=== PATIENT | female | born 1985 | race Two or more races ===

== ENCOUNTER 2020-09-04 13:33 | Inpatient (IN) | payer OTHER ==
--- NOTE | 2020-09-04 14:58 | ER Document Report ---
ED Medical Screen (RME) - General Chief Complaint: Shortness Of Breath Stated Complaint: WEAKNESS,COUGH,DIFFICULTY BREATHING Time Seen by Provider: 09/04/20 14:48 - HPI Notes: Patient is a 35-year-old female who presents with shortness of breath and cough. She was recently discharged from [facility] 5 days ago after being admitted for 3 days for pneumonia. Patient states while there she was treated for C. difficile. She is very unhappy with her care during her admission and continues to have shortness of breath and cough. She is currently not on any antibiotics. She denies any diarrhea or fever currently. She was diagnosed a kidney infection at the beginning of the month and has not had this followed up. - Related Data Allergies/Adverse Reactions: No Known Allergies Allergy (Verified 09/04/20 14:48) Physical Exam - Vital signs Vitals: Temp Pulse Resp BP Pulse Ox 99.0 F 130 H 19 133/92 H 90 L 09/04/20 13:58 09/04/20 13:58 09/04/20 13:58 09/04/20 13:58 09/04/20 13:58 - Respiratory Respiratory status: No respiratory distress Breath sounds: Normal Course - Re-evaluation Re-evalutation: I have greeted and performed a rapid initial assessment of this patient. A comprehensive ED assessment and evaluation of the patient, analysis of test results and completion of medical decision making process will be conducted by an additional ED providers. - Vital Signs Vital signs: Temp Pulse Resp BP Pulse Ox 99.0 F 130 H 19 133/92 H 90 L 09/04/20 13:58 09/04/20 13:58 09/04/20 13:58 09/04/20 13:58 09/04/20 13:58
--- NOTE | 2020-09-04 15:27 | RADIOLOGY REPORT (SQ) ---
EXAM DESCRIPTION: CHEST SINGLE VIEW IMAGES COMPLETED DATE/TIME: 09/04/2020 3:17 pm REASON FOR STUDY: shortness of breath COMPARISON: None. EXAM PARAMETERS: NUMBER OF VIEWS: One view. TECHNIQUE: Single frontal radiographic view of the chest acquired. RADIATION DOSE: NA LIMITATIONS: None. FINDINGS: LUNGS AND PLEURA: Extensive diffuse bowel airspace disease consistent with pneumonia. No pneumothorax. MEDIASTINUM AND HILAR STRUCTURES: No obvious mass. HEART AND VASCULAR STRUCTURES: Heart normal in size. Normal vasculature. BONES: No acute findings. HARDWARE: None in the chest. OTHER: No other significant finding. IMPRESSION: Diffuse bilateral airspace disease. COMMENT: Commonly reported imaging features of COVID-19 pneumonia are present. Other processes young ch as influenza pneumonia and organizing pneumonia, as can be seen with drug toxicity and connective tissue disease, can cause a similar imaging pattern. [facility] TECHNICAL DOCUMENT[facility]: JOB ID: [id number] All Rights Reserved Reading location - IP/workstation name: [email or web address]
[2020-09-04 15:48] LABS: APPEARANCE,URINE CLEAR; BILIRUBIN,URINE NEGATIVE (NEGATIVE); COLOR,URINE STRAW; GLUCOSE, URINE NEGATIVE (NEGATIVE); KETONES,URINE NEGATIVE (NEGATIVE); LEUKOCYTE ESTERASE,URINE NEGATIVE (NEGATIVE); NITRITE,URINE NEGATIVE (NEGATIVE); PROTEIN,URINE NEGATIVE (NEGATIVE); URINE SPECIFIC GRAVITY 1.006; UROBILINOGEN,URINE NEGATIVE mg/dL (<2.0)
[2020-09-04 15:52] LABS: HEMATOCRIT 37.1 % (36.0-47.0); HEMOGLOBIN 12.5 g/dL (12.0-15.5); MEAN CORPUSCULAR HEMOGLOBIN 30.3 pg (27.0-33.4); MEAN CORPUSCULAR HGB CONC 33.8 g/dL (32.0-36.0); MEAN CORPUSCULAR VOLUME 90 fl (80-97); PLATELET COUNT 970 10^3/uL (150-450); RED BLOOD COUNT 4.14 10^6/uL (3.72-5.28); RED CELL DISTRIBUTION WIDTH 14.1 % (11.5-14.0); WHITE BLOOD COUNT 20.9 10^3/uL (4.0-10.5)
[2020-09-04 15:58] LABS: A TYPE INFLUENZA AG NEGATIVE (NEGATIVE); B INFLUENZA AG NEGATIVE (NEGATIVE)
[2020-09-04 16:01] LABS: ALBUMIN 3.3 g/dL (3.5-5.0); ALKALINE PHOSPHATASE 86 U/L (38-126); ANION GAP 12 (5-19); ASPARTATE AMINO TRANSFERASE 36 U/L (14-36); BILIRUBIN,DIRECT 0.1 mg/dL (0.0-0.4); BILIRUBIN,TOTAL 0.4 mg/dL (0.2-1.3); BLOOD UREA NITROGEN 3 mg/dL (7-20); CALCIUM 8.6 mg/dL (8.4-10.2); CARBON DIOXIDE 26 mmol/L (22-30); CHLORIDE 102 mmol/L (98-107); GLUCOSE 102 mg/dL (75-110); POTASSIUM 4.1 mmol/L (3.6-5.0); TOTAL PROTEIN 6.4 g/dL (6.3-8.2)
[2020-09-04 16:24] LABS: ABSOLUTE LYMPHOCYTES# (MANUAL) 2.3 10^3/uL (0.5-4.7); BASOPHILS % (MANUAL) 0 % (0-2); EOSINOPHILS % (MANUAL) 23 % (0-6); LYMPHOCYTES % (MANUAL) 11 % (13-45); MONOCYTES % (MANUAL) 5 % (3-13); SEGMENTED NEUTROPHILS % (MAN) 61 % (42-78); TOTAL CELLS COUNTED 100
[2020-09-04 16:25] LABS: PLATELET COMMENT INCREASED
[2020-09-04 16:27] LABS: ANISOCYTOSIS SLIGHT; OVALOCYTES SLIGHT; POIKILOCYTOSIS SLIGHT; POLYCHROMASIA SLIGHT
--- NOTE | 2020-09-04 18:20 | ER Document Report ---
ED General - General Chief Complaint: Shortness Of Breath Stated Complaint: WEAKNESS,COUGH,DIFFICULTY BREATHING Time Seen by Provider: 09/04/20 14:48 - HPI Notes: 35-year-old female presents with shortness of breath. Patient has had recent hospitalizations this month at the [facility]. Patient states that her first admission was for a kidney infection, she was treated with antibiotics but this gave her C. difficile. She was started on oral vancomycin, however has since discontinued use since she has been home. She states that she took 2 pills for 2 to 3 days as an outpatient, stop because it was causing some stomach discomfort. Was hospitalized again last week for shortness of breath and and "full blown pneumonia", she states that she received IV antibiotics but is unsure which ones, she states that she was tested negative for Covid. She was discharged Friday, 5 days ago. She reports that she continues to have shortness of breath and a wet cough, she states that she cannot breathe, she cannot sleep, she feels sweaty and has had decreased oral intake. She denies any abdominal pain or diarrhea. She denies any previous past medical history. She denies intravenous drug abuse. She states that she does smoke. - Related Data Allergies/Adverse Reactions: No Known Allergies Allergy (Verified 09/04/20 14:48) Past Medical History - General Information source: Patient - Social History Smoking Status: Current Every Day Smoker Family History: Reviewed & Not Pertinent Patient has homicidal ideation: No Review of Systems - Review of Systems Constitutional: Chills EENT: No symptoms reported Cardiovascular: denies: Chest pain Respiratory: Cough, Short of breath Gastrointestinal: Poor fluid intake Genitourinary: No symptoms reported Female Genitourinary: No symptoms reported Musculoskeletal: Muscle pain Skin: No symptoms reported Hematologic/Lymphatic: No symptoms reported Neurological/Psychological: No symptoms reported Physical Exam - Vital signs Vitals: Temp Pulse Resp BP Pulse Ox 99.0 F 130 H 19 133/92 H 90 L 09/04/20 13:58 09/04/20 13:58 09/04/20 13:58 09/04/20 13:58 09/04/20 13:58 - General General appearance: Alert - HEENT Head: Normocephalic, Atraumatic Extraocular movements intact: Yes Pupils: PERRL - Respiratory Breath sounds: Rhonchi - Generalized, course - Cardiovascular Rhythm: Tachycardia Heart sounds: Normal auscultation Normal capillary refill: Yes - Abdominal Tenderness: Nontender - Extremities General upper extremity: Normal ROM General lower extremity: Normal ROM - Neurological Neuro grossly intact: Yes Cognition: Normal Orientation: AAOx4 - Psychological Associated symptoms: Normal affect - Skin Skin Temperature: Warm Course - Re-evaluation Re-evalutation: 35-year-old female presents with persistent shortness of breath and cough, was recently admitted at the [facility] for pneumonia and was reported to be Covid negative. She is also recently had pyelonephritis and C. difficile. She initial had hypoxia on room air, which improved with nasal cannula. She has coarse sounds throughout all of her lung carson. She is mildly tachycardic, afebrile, overall she is nontoxic appearing but does appear to not be feeling well. A chest x-ray has already been performed which shows bilateral opacities involving all lung carson. This is highly concerning for Covid, will retest. We will also obtain CTA chest to evaluate for PE and to get a better look at the lung carson to see if there is any evidence of abscess or septic emboli, though she does deny IVDA. Will start with neb, Decadron and fluids. Continue on nasal cannula. 09/04/20 20:03 Ferritin, CRP and D-dimer are all elevated. ABG does note some hypoxia with pO2 60, will continue on nasal cannula 09/04/20 21:22 CTA is negative for PE however does have extensive bilateral airspace disease. Updated patient on CT results. She remains 97% on 3 L. She does report some improvement after receiving albuterol treatment. 09/04/20 22:[address] Snow for admission - Vital Signs Vital signs: Temp Pulse Resp BP Pulse Ox 99.4 F 108 H 21 H 126/91 H 97 09/05/20 00:28 09/05/20 00:28 09/05/20 00:28 09/05/20 00:28 09/05/20 00:28 - Laboratory Result Diagrams: 09/04/20 15:25 09/04/20 15:25 Laboratory results interpreted by me: 09/04/20 09/04/20 09/04/20 15:25 15:25 15:25 WBC 20.9 H RDW 14.1 H Plt Count 970 H Lymphocytes % (Manual) 11 L Eosinophils % (Manual) 23 H Abs Neuts (Manual) 12.7 H Absolute Eos (Manual) 4.8 H D-Dimer 9.91 H ABG pO2 ABG O2 Saturation BUN 3 L Creatinine 0.40 L Ferritin C-Reactive Protein Albumin 3.3 L 09/04/20 09/04/20 15:25 19:05 WBC RDW Plt Count Lymphocytes % (Manual) Eosinophils % (Manual) Abs Neuts (Manual) Absolute Eos (Manual) D-Dimer ABG pO2 59.7 L ABG O2 Saturation 92.1 L BUN Creatinine Ferritin 161.00 H C-Reactive Protein 54.0 H Albumin - Diagnostic Test Radiology reviewed: Image reviewed, Reports reviewed - EKG Interpretation by Me Additional EKG results interpreted by me: EKG is interpreted by me. Sinus tachycardia, rate 106. Narrow QRS, QTC within normal limits. No ST segment elevation or depression. Discharge - Discharge Clinical Impression: Hypoxia, Suspected COVID-19 virus infection Bilateral pneumonia Qualifiers: Pneumonia type: due to unspecified organism Lung location: unspecified part of lung Qualified Code(s): J18.9 - Pneumonia, unspecified organism Disposition: ADMITTED OBSERVATION Admitting Provider: Gwendolyn (Hospitalist) Unit Admitted: Medical Floor
[2020-09-04] MEDS ORDERED: IPRATROPIUM/ALBUTEROL 0.5-2.5 MG/3 ML AMPUL NEB ONE (18:36)
[2020-09-04] MEDS ORDERED: GUAIFENESIN 600 MG TABLET.SA PO ONE (18:37)
[2020-09-04] MEDS ORDERED: RINGERS SOLUTION,LACTATED 1,000 ML IV ONE (18:59)
[2020-09-04] MEDS: CEFEPIME 1 GM/D5W RTU 1 GM/50 ML RTUPB IV SCH ×2 (19:19→22:21)
[2020-09-04 19:26] LABS: ARTERIAL BLOOD BASE EXCESS 0.1 mmol/L; ARTERIAL BLOOD H2CO3 1.07 mmol/L (1.05-1.35); ARTERIAL BLOOD HCO3 23.8 mmol/L (20-24); ARTERIAL BLOOD O2 SATURATION 92.1 % (94-98); ARTERIAL BLOOD PCO2 35.5 mmHg (35-45); ARTERIAL BLOOD PH 7.45 (7.35-7.45); ARTERIAL BLOOD PO2 59.7 mmHg (80-100); ARTERIAL BLOOD TOTAL CO2 24.9 mmol/L (21-25)
[2020-09-04 19:27] LABS: ARTERIAL BLOOD FIO2 28%
--- NOTE | 2020-09-04 20:41 | RADIOLOGY REPORT (SQ) ---
EXAM DESCRIPTION: CT CHEST ANGIOGRAPHY WITHOUT THEN WITH IV CONTRAST with three-dimensional reconstructions COMPLETED DATE/TME: 09/04/2020 20:17 CLINICAL HISTORY: 35 years, Female, b/l pna, hypoxia, eval PE This exam was performed according to our departmental dose-optimization program which includes automated exposure control, adjustment of the mA and/or kVp according to patient size and/or use of iterative reconstruction technique where applicable. FINDINGS: Aorta is within normal limits with no aneurysm or dissection. Pulmonary arteries are well opacified with no significant filling defects to suggest acute pulmonary embolism. No significant mediastinal, hilar or axillary lymphadenopathy. No significant pericardial effusion. Mild right pleural effusion. Trace left pleural effusion. Visualized upper abdominal organs are within normal limits. Evaluation of the lung parenchyma demonstrates trachea and major airways to be patent. Diffuse groundglass changes throughout the lungs and more consolidative changes in the upper lobes. No pneumothorax. IMPRESSION: No acute pulmonary embolism. Extensive bilateral diffuse pneumonia, suspicious for Covid etiology, correlate clinically. Mild right pleural effusion.
[2020-09-04] MEDS ORDERED: DEXAMETHASONE SOD PHOS INJ 10 MG/1 ML VIAL IV ONE (21:21)
[2020-09-04] MEDS ORDERED: GUAIFENESIN SYRP 200 MG/10 ML UDC PO PRN (22:34)
[2020-09-04] MEDS ORDERED: ALBUTEROL SULFATE HFA (90 MCG/PUFF) 8 GM MDI IH PRN (22:34)
--- NOTE | 2020-09-04 23:03 | PDOC H&P ---
History of Present Illness Admission Date/PCP: GUSTAVO ATWOOD DO Patient complains of: Shortness of breath History of Present Illness: BRITTANY STEELE is a 35 year old female with no significant chronic medical issues, who presents to the hospital for evaluation of progressively worsening shortness of breath and cough. Patient was recently seen at [facility] where she was treated for pyelonephritis at the beginning of the month. She subsequently was hospitalized from Friday to Friday last week for treatment of pneumonia and C. difficile infection. She was discharged on vancomycin and azithromycin. She also was discharged on Tamiflu. She states she completed the Tamiflu and azithromycin but stopped taking the vancomycin because it made her feel sicker. She continues to have progressive worsening shortness of breath and dry hacking cough. She states she was tested for COVID-19 during her last hospitalization which was negative. She was also tested at the beginning of the month for COVID-19 which was also negative. She is not certain that her flu test was positive though she was sent home on Tamiflu. She denies any sick contacts. Denies any rashes. She states her diarrhea has resolved as well. Seen in the ER today and noted to be hypoxic and was placed on 2 L nasal cannula. Initial documentation shows she was 90% on room air. Past Medical History GI Medical History: Reports: Other - C. difficile Past Surgical History Past Surgical History: Reports: None Social History Information Source: Patient Smoking Status: Current Every Day Smoker Electronic Cigarette use?: Yes Frequency of Alcohol Use: Occasional Hx Recreational Drug Use: No - Advance Directive Resuscitation Status: Full Code Family History Family History: denies: CAD Parental Family History Reviewed: Yes Children Family History Reviewed: Yes Sibling(s) Family History Reviewed.: Yes Medication/Allergy Allergies/Adverse Reactions: No Known Allergies Allergy (Verified 09/04/20 14:48) Review of Systems Constitutional: PRESENT: chills, night sweats. ABSENT: fatigue, fever(s) Eyes: ABSENT: visual disturbances Ears: ABSENT: hearing changes Nose, Mouth, and Throat: ABSENT: headache(s) Cardiovascular: PRESENT: chest pain - Only from coughing. ABSENT: orthropnea Respiratory: PRESENT: cough, dyspnea Gastrointestinal: ABSENT: abdominal pain, diarrhea, nausea, vomiting Genitourinary: ABSENT: dysuria Musculoskeletal: ABSENT: back pain Integumentary: PRESENT: diaphoresis. ABSENT: lesions, pruritus, rash Neurological: ABSENT: dizziness Endocrine: ABSENT: polyuria Hematologic/Lymphatic: ABSENT: easy bleeding Allergic/Immunologic: ABSENT: seasonal rhinorrhea Physical Exam Vital Signs: Temp Pulse Resp BP Pulse Ox 99.4 F 101 H 19 129/81 H 98 09/04/20 21:08 09/04/20 21:08 09/04/20 13:58 09/04/20 21:08 09/04/20 21:08 Intake & Output 09/03/20 09/04/20 09/05/20 06:59 06:59 06:59 Intake Total 1050 Balance 1050 Weight 72.3 kg General appearance: PRESENT: no acute distress, cooperative Head exam: PRESENT: normocephalic Eye exam: PRESENT: EOMI Neck exam: ABSENT: JVD Respiratory exam: PRESENT: crackles, symmetrical, unlabored. ABSENT: accessory muscle use, retraction, rhonchi, stridor, tachypnea, wheezes Cardiovascular exam: PRESENT: RRR, +S1, +S2. ABSENT: systolic murmur, tachycardia GI/Abdominal exam: PRESENT: soft. ABSENT: rebound, rigid, tenderness Extremities exam: ABSENT: pedal edema Neurological exam: PRESENT: alert, awake, oriented to person, oriented to place, oriented to time Psychiatric exam: ABSENT: agitated, anxious Focused psych exam: ABSENT: pressured speech Skin exam: ABSENT: jaundice Results Laboratory Results: 09/04/20 15:25 09/04/20 15:25 09/04/20 09/04/20 09/04/20 15:25 15:25 15:25 WBC 20.9 H RBC 4.14 Hgb 12.5 Hct 37.1 MCV 90 MCH 30.3 MCHC 33.8 RDW 14.1 H Plt Count 970 H Seg Neutrophils % Not Reportable Carbonic Acid HCO3/H2CO3 Ratio ABG pH ABG pCO2 ABG pO2 ABG HCO3 ABG O2 Saturation ABG Base Excess FiO2 Sodium 140.3 Potassium 4.1 Chloride 102 Carbon Dioxide 26 Anion Gap 12 BUN 3 L Creatinine 0.40 L Est GFR ( Amer) > 60 Glucose 102 Calcium 8.6 Ferritin Total Bilirubin 0.4 AST 36 Alkaline Phosphatase 86 C-Reactive Protein Total Protein 6.4 Albumin 3.3 L Urine Color STRAW Urine Appearance CLEAR Urine pH 8.0 Ur Specific [place] 1.006 Urine Protein NEGATIVE Urine Glucose (UA) NEGATIVE Urine Ketones NEGATIVE Urine Blood NEGATIVE Urine Nitrite NEGATIVE Ur Leukocyte Esterase NEGATIVE Urine WBC (Auto) 0 Urine RBC (Auto) 0 09/04/20 09/04/20 15:25 19:05 WBC RBC Hgb Hct MCV MCH MCHC RDW Plt Count Seg Neutrophils % Carbonic Acid 1.07 HCO3/H2CO3 Ratio 22:1 ABG pH 7.45 ABG pCO2 35.5 ABG pO2 59.7 L ABG HCO3 23.8 ABG O2 Saturation 92.1 L ABG Base Excess 0.1 FiO2 28% Sodium Potassium Chloride Carbon Dioxide Anion Gap BUN Creatinine Est GFR ( Amer) Glucose Calcium Ferritin 161.00 H Total Bilirubin AST Alkaline Phosphatase C-Reactive Protein 54.0 H Total Protein Albumin Urine Color Urine Appearance Urine pH Ur Specific [place] Urine Protein Urine Glucose (UA) Urine Ketones Urine Blood Urine Nitrite Ur Leukocyte Esterase Urine WBC (Auto) Urine RBC (Auto) Impressions: Chest X-Ray 09/04/20 14:55 IMPRESSION: Diffuse bilateral airspace disease. Chest/Abdomen CTA 09/04/20 18:35 IMPRESSION: No acute pulmonary embolism. Extensive bilateral diffuse pneumonia, suspicious for Covid etiology, correlate clinically. Mild right pleural effusion. Assessment and Plan - Diagnosis (1) Acute hypoxemic respiratory failure Is this a current diagnosis for this admission?: Yes Plan: Secondary to interstitial pneumonia/pneumonitis PO2 is 59 on 2 L nasal cannula. We will keep patient on 2 L nasal cannula. Goal SPO2 above 91%. (2) Interstitial pneumonia Is this a current diagnosis for this admission?: Yes Plan: CTA chest shows no PE but does show extensive bilateral interstitial infiltrates. Leukocytosis over 20,000, SIRS and inflammatory markers are quite high. Not septic. Patient reports having 2 negative Covid tests this month. Flu test is also negative. Suspicion is for interstitial pneumonia or pneumonitis. Completed course of azithromycin which should help with atypical infections such as Legionella. Denies any rheumatologic diseases or symptoms. If COVID-19 test comes back negative, the next suspicion would be for EVALI. Start on Levaquin Dexamethasone IV 4 mg twice daily Vitamin and zinc supplements. 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 CTA appearance also fits this etiology. It is possible that this is the culprit here especially she has not responded to antibiotics, Tamiflu Starting dexamethasone. Can switch to Solu-Medrol if Covid test comes back negative. Consider pulmonary consult if available. (4) History of Clostridioides difficile infection Is this a current diagnosis for this admission?: Yes Plan: Diagnosed last week. She states she only took her vancomycin 3 times after being discharged and stopped. Her diarrhea has stopped. It is unclear how many days she has had but I will resume vancomycin and retest for C. difficile if possible. - Time Time Spent with patient: 35 or more minutes Anticipated Discharge Disposition: Home, Self Care Anticipated Discharge Timeframe: within 48 hours - Inpatient Certification Medical Necessity: Failure to Improve With Outpatient Therapy, Need For IV Fluids
[2020-09-04] MEDS: FAMOTIDINE 20 MG TABLET PO SCH (23:28)
[2020-09-04] MEDS: GUAIFENESIN 600 MG TABLET.SA PO SCH (23:29)
[2020-09-04] MEDS: LEVOFLOXACIN 750 MG/D5W RTU 750 MG/150 ML RTUPB IV SCH (23:30)
[2020-09-05] MEDS: VANCOMYCIN HCL INJ 500 MG VIAL PO SCH ×4 (00:52→17:26)
[2020-09-05] MEDS: ACETAMINOPHEN 325 MG TABLET PO PRN ×2 (01:07→21:12)
[2020-09-05] MEDS: NORMAL SALINE 1000 ML 1,000 ML IV PRN (01:12)
[2020-09-05] MEDS: ONDANSETRON HCL INJ/PF 4 MG/2 ML SDV IV PRN ×2 (01:54→20:32)
[2020-09-05 06:39] LABS: HEMATOCRIT 31.5 % (36.0-47.0); HEMOGLOBIN 10.5 g/dL (12.0-15.5); MEAN CORPUSCULAR HEMOGLOBIN 29.7 pg (27.0-33.4); MEAN CORPUSCULAR HGB CONC 33.3 g/dL (32.0-36.0); MEAN CORPUSCULAR VOLUME 89 fl (80-97); PLATELET COUNT 844 10^3/uL (150-450); RED BLOOD COUNT 3.53 10^6/uL (3.72-5.28); RED CELL DISTRIBUTION WIDTH 13.9 % (11.5-14.0); WHITE BLOOD COUNT 14.5 10^3/uL (4.0-10.5)
[2020-09-05 06:51] LABS: ANION GAP 5 (5-19); BLOOD UREA NITROGEN 2 mg/dL (7-20); CALCIUM 8.2 mg/dL (8.4-10.2); CARBON DIOXIDE 27 mmol/L (22-30); CHLORIDE 105 mmol/L (98-107); GLUCOSE 154 mg/dL (75-110); POTASSIUM 4.7 mmol/L (3.6-5.0)
[2020-09-05 07:22] LABS: ABSOLUTE LYMPHOCYTES# (MANUAL) 1.2 10^3/uL (0.5-4.7); ABSOLUTE MONOCYTES # (MANUAL) 0.4 10^3/uL (0.1-1.4); BAND NEUTROPHILS % (MANUAL) 2 % (3-5); BASOPHILS % (MANUAL) 0 % (0-2); EOSINOPHILS % (MANUAL) 2 % (0-6); LYMPHOCYTES % (MANUAL) 8 % (13-45); MONOCYTES % (MANUAL) 3 % (3-13); SEGMENTED NEUTROPHILS % (MAN) 85 % (42-78); TOTAL CELLS COUNTED 100
[2020-09-05 07:24] LABS: PLATELET COMMENT ADEQUATE; RBC MORPHOLOGY COMMENT NORMO-CYTIC/CHROMIC
--- NOTE | 2020-09-05 07:35 | EKG REPORT ---
SEVERITY:- OTHERWISE NORMAL ECG - SINUS TACHYCARDIA : Confirmed by: Brandon Burr MD 05-Sep-2020 07:34:19
[2020-09-05] MEDS: DEXAMETHASONE SOD PHOS INJ 10 MG/1 ML VIAL IV SCH ×2 (10:59→17:27)
[2020-09-05] MEDS: ENOXAPARIN SODIUM INJ 40 MG/0.4 ML DISP.SYRIN SUBCUT SCH (10:59)
[2020-09-05] MEDS: ZINC SULFATE 220 MG CAPSULE PO SCH (11:00)
[2020-09-05] MEDS: ASCORBIC ACID 500 MG TABLET PO SCH ×2 (11:00→17:27)
[2020-09-05] MEDS: CHOLECALCIFEROL (D3) 1,000 UNIT (25 MCG) TABLET PO SCH (11:00)
[2020-09-05] MEDS: GUAIFENESIN 600 MG TABLET.SA PO SCH ×2 (11:00→21:12)
[2020-09-05] MEDS: FAMOTIDINE 20 MG TABLET PO SCH ×2 (11:00→21:12)
--- NOTE | 2020-09-05 12:48 | EKG REPORT ---
SEVERITY:- BORDERLINE ECG - SINUS TACHYCARDIA PROBABLE LEFT ATRIAL ABNORMALITY : Confirmed by: Brandon Burr MD 05-Sep-2020 12:48:00
--- NOTE | 2020-09-05 16:42 | PDOC PROGRESS REPORT ---
Subjective Date:: 09/05/20 Subjective:: BRITTANY STEELE is a 35 year old female with no significant chronic medical issues, who presents to the hospital for evaluation of progressively worsening shortness of breath and cough. Patient was recently seen at [facility] where she was treated for pyelonephritis at the beginning of the month. She subsequently was hospitalized from Friday to Friday last week for treatment of pneumonia and C. difficile infection. She was discharged on vancomycin and azithromycin. She also was discharged on Tamiflu. She states she completed the Tamiflu and azithromycin but stopped taking the vancomycin because it made her feel sicker. She continues to have progressive worsening shortness of breath and dry hacking cough. She states she was tested for COVID-19 during her last hospitalization which was negative. She was also tested at the beginning of the month for COVID-19 which was also negative. She is not certain that her flu test was positive though she was sent home on Tamiflu. She denies any sick contacts. Denies any rashes. She states her diarrhea has resolved as well. Seen in the ER today and noted to be hypoxic and was placed on 2 L nasal cannula. Initial documentation shows she was 90% on room air. 09/05/2020. No acute events overnight. Shortness of breath improving, denies any fever, chills, nausea, vomiting. Denies any chest pain. SPO2 WNL on 2 L nasal cannula. Reason For Visit: PNEUOMONIA V. PNEUMONITIS Physical Exam Vital Signs: Temp Pulse Resp BP Pulse Ox 98.4 F 103 H 20 116/65 100 09/05/20 15:59 09/05/20 15:59 09/05/20 15:59 09/05/20 15:59 09/05/20 15:59 Pulse Oximeter Continuous Start: 09/04/20 22:34 Freq: RTQ4 Status: Hold Protocol: Document 09/05/20 11:31 HIRAL (Rec: 09/05/20 11:31 HIRAL [email or web address]) Pulse Oximetry Assessment Equipment Usage Equipment Standby Continuous SpO2 Machine # 0 Additional RT Notes Other on nurse monitor Intake & Output 09/04/20 09/05/20 09/06/20 06:59 06:59 06:59 Intake Total 1250 Balance 1250 Weight 72.3 kg 44.7 kg General appearance: PRESENT: no acute distress, mild distress, well-developed, well-nourished Head exam: PRESENT: atraumatic, normocephalic Neck exam: ABSENT: carotid bruit, JVD, lymphadenopathy, thyromegaly Respiratory exam: PRESENT: clear to auscultation alcides, symmetrical, tachypnea. ABSENT: rales, rhonchi, wheezes Cardiovascular exam: PRESENT: RRR. ABSENT: diastolic murmur, rubs, systolic murmur GI/Abdominal exam: PRESENT: normal bowel sounds, soft. ABSENT: distended, guarding, mass, organolmegaly, rebound, tenderness Extremities exam: PRESENT: full ROM. ABSENT: calf tenderness, clubbing, pedal edema Neurological exam: PRESENT: alert, awake, oriented to person, oriented to place, oriented to time, oriented to situation, CN II-XII grossly intact. ABSENT: motor sensory deficit Results Laboratory Results: 09/05/20 06:00 09/05/20 06:00 09/04/20 09/04/20 09/05/20 15:25 19:05 06:00 WBC 14.5 H RBC 3.53 L Hgb 10.5 L Hct 31.5 L MCV 89 MCH 29.7 MCHC 33.3 RDW 13.9 Plt Count 844 H Seg Neutrophils % Not Reportable Carbonic Acid 1.07 HCO3/H2CO3 Ratio 22:1 ABG pH 7.45 ABG pCO2 35.5 ABG pO2 59.7 L ABG HCO3 23.8 ABG O2 Saturation 92.1 L ABG Base Excess 0.1 FiO2 28% Sodium Potassium Chloride Carbon Dioxide Anion Gap BUN Creatinine Est GFR ( Amer) Glucose Calcium Ferritin 161.00 H C-Reactive Protein 54.0 H 09/05/20 06:00 WBC RBC Hgb Hct MCV MCH MCHC RDW Plt Count Seg Neutrophils % Carbonic Acid HCO3/H2CO3 Ratio ABG pH ABG pCO2 ABG pO2 ABG HCO3 ABG O2 Saturation ABG Base Excess FiO2 Sodium 136.5 L Potassium 4.7 Chloride 105 Carbon Dioxide 27 Anion Gap 5 BUN 2 L Creatinine 0.35 L Est GFR ( Amer) > 60 Glucose 154 H Calcium 8.2 L Ferritin C-Reactive Protein 09/04/20 15:25 NT-Pro-B Natriuret Pep 88 Impressions: Chest X-Ray 09/04/20 14:55 IMPRESSION: Diffuse bilateral airspace disease. Chest/Abdomen CTA 09/04/20 18:35 IMPRESSION: No acute pulmonary embolism. Extensive bilateral diffuse pneumonia, suspicious for Covid etiology, correlate clinically. Mild right pleural effusion. Assessment and Plan - Diagnosis (1) Acute hypoxemic respiratory failure Is this a current diagnosis for this admission?: Yes Plan: Secondary to interstitial pneumonia/pneumonitis PO2 is 59 on 2 L nasal cannula. We will keep patient on 2 L nasal cannula. Goal SPO2 above 91%. 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 CTA appearance also fits this etiology. It is possible that this is the culprit here especially she has not responded to antibiotics, Tamiflu Starting dexamethasone. Can switch to Solu-Medrol if Covid test comes back negative. Consider pulmonary consult if available. (3) History of Clostridioides difficile infection Is this a current diagnosis for this admission?: Yes Plan: Diagnosed last week. She states she only took her vancomycin 3 times after being discharged and stopped. Her diarrhea has stopped. It is unclear how many days she has had but I will resume vancomycin and retest for C. difficile if possible. (4) Hypoxia Is this a current diagnosis for this admission?: Yes Plan: Secondary to interstitial pneumonia/pneumonitis We will keep patient on 2 L nasal cannula. Goal SPO2 above 91%. (5) Interstitial pneumonia Is this a current diagnosis for this admission?: Yes Plan: CTA chest shows no PE but does show extensive bilateral interstitial infiltrates. Leukocytosis over 20,000, SIRS and inflammatory markers are quite high. Not septic. Patient reports having 2 negative Covid tests this month. Flu test is also negative. Suspicion is for interstitial pneumonia or pneumonitis. Completed course of azithromycin which should help with atypical infections such as Legionella. Denies any rheumatologic diseases or symptoms. If COVID-19 test comes back negative, the next suspicion would be for EVALI. Start on Levaquin Dexamethasone IV 4 mg twice daily Vitamin and zinc supplements. (6) Suspected COVID-19 virus infection Is this a current diagnosis for this admission?: Yes Plan: Denies any exposure to anybody with COVID-19 infection. Pending COVID-19 serology. - Time Time Spent with patient: 35 or more minutes Anticipated Discharge Disposition: Home, Self Care Anticipated Discharge Timeframe: within 72 hours
[2020-09-05 17:07] LABS: C DIFFICILE GDH NEGATIVE (NEGATIVE)
[2020-09-05] MEDS ORDERED: NITROGLYCERIN 0.4 MG/TAB 25 TAB/BOTTLE SL PRN (17:45)
[2020-09-05] MEDS: MORPHINE SULFATE 10 MG/ML INJ IV PRN (19:45)
[2020-09-05] MEDS: LEVOFLOXACIN 750 MG/D5W RTU 750 MG/150 ML RTUPB IV SCH (21:13)
[2020-09-06] MEDS: VANCOMYCIN HCL INJ 500 MG VIAL PO SCH ×2 (00:16→05:14)
[2020-09-06] MEDS: NORMAL SALINE 1000 ML 1,000 ML IV PRN (01:32)
[2020-09-06] MEDS: ONDANSETRON HCL INJ/PF 4 MG/2 ML SDV IV PRN (02:48)
[2020-09-06] MEDS: MORPHINE SULFATE 10 MG/ML INJ IV PRN ×3 (02:48→21:21)
[2020-09-06 05:30] LABS: INTERNATIONAL RATION (INR) 1.23; PROTHROMBIN TIME 15.7 SEC (11.4-15.4)
[2020-09-06 05:48] LABS: ALBUMIN 2.6 g/dL (3.5-5.0); ALKALINE PHOSPHATASE 60 U/L (38-126); ANION GAP 6 (5-19); ASPARTATE AMINO TRANSFERASE 23 U/L (14-36); BILIRUBIN,DIRECT 0.2 mg/dL (0.0-0.4); BILIRUBIN,TOTAL 0.4 mg/dL (0.2-1.3); BLOOD UREA NITROGEN 2 mg/dL (7-20); CALCIUM 8.1 mg/dL (8.4-10.2); CARBON DIOXIDE 27 mmol/L (22-30); CHLORIDE 103 mmol/L (98-107); GLUCOSE 96 mg/dL (75-110); POTASSIUM 4.4 mmol/L (3.6-5.0); TOTAL PROTEIN 5.1 g/dL (6.3-8.2)
[2020-09-06] MEDS: ENOXAPARIN SODIUM INJ 40 MG/0.4 ML DISP.SYRIN SUBCUT SCH (09:21)
[2020-09-06] MEDS: CHOLECALCIFEROL (D3) 1,000 UNIT (25 MCG) TABLET PO SCH (09:22)
[2020-09-06] MEDS: GUAIFENESIN 600 MG TABLET.SA PO SCH (09:22)
[2020-09-06] MEDS: ASCORBIC ACID 500 MG TABLET PO SCH (09:22)
[2020-09-06] MEDS: FAMOTIDINE 20 MG TABLET PO SCH ×2 (09:22→21:20)
[2020-09-06] MEDS: ZINC SULFATE 220 MG CAPSULE PO SCH (09:22)
[2020-09-06] MEDS ORDERED: DEXAMETHASONE 4 MG TABLET PO SCH (10:00)
[2020-09-06 10:02] LABS: HEMATOCRIT 30.7 % (36.0-47.0); HEMOGLOBIN 10.1 g/dL (12.0-15.5); MEAN CORPUSCULAR HEMOGLOBIN 29.5 pg (27.0-33.4); MEAN CORPUSCULAR VOLUME 89 fl (80-97); PLATELET COUNT 755 10^3/uL (150-450); RED BLOOD COUNT 3.44 10^6/uL (3.72-5.28); WHITE BLOOD COUNT 20.9 10^3/uL (4.0-10.5)
[2020-09-06 10:39] LABS: ABSOLUTE MONOCYTES # (MANUAL) 0.8 10^3/uL (0.1-1.4); LYMPHOCYTES % (MANUAL) 16 % (13-45); MONOCYTES % (MANUAL) 4 % (3-13); SEGMENTED NEUTROPHILS % (MAN) 61 % (42-78); TOTAL CELLS COUNTED 100
[2020-09-06 10:40] LABS: ABSOLUTE LYMPHOCYTES# (MANUAL) 3.3 10^3/uL (0.5-4.7); BASOPHILS % (MANUAL) 0 % (0-2); EOSINOPHILS % (MANUAL) 19 % (0-6)
[2020-09-06 10:46] LABS: ANISOCYTOSIS 1+; HYPOCHROMASIA 1+; PLATELET COMMENT INCREASED
[2020-09-06] MEDS ORDERED: IPRATROPIUM/ALBUTEROL 0.5-2.5 MG/3 ML AMPUL NEB PRN (10:51)
--- NOTE | 2020-09-06 12:50 | PDOC PROGRESS REPORT ---
Subjective Date:: 09/06/20 Subjective:: BRITTANY STEELE is a 35 year old female with no significant chronic medical issues, who presents to the hospital for evaluation of progressively worsening shortness of breath and cough. Patient was recently seen at [facility] where she was treated for pyelonephritis at the beginning of the month. She subsequently was hospitalized from Friday to Friday last week for treatment of pneumonia and C. difficile infection. She was discharged on vancomycin and azithromycin. She also was discharged on Tamiflu. She states she completed the Tamiflu and azithromycin but stopped taking the vancomycin because it made her feel sicker. She continues to have progressive worsening shortness of breath and dry hacking cough. She states she was tested for COVID-19 during her last hospitalization which was negative. She was also tested at the beginning of the month for COVID-19 which was also negative. She is not certain that her flu test was positive though she was sent home on Tamiflu. She denies any sick contacts. Denies any rashes. She states her diarrhea has resolved as well. Seen in the ER today and noted to be hypoxic and was placed on 2 L nasal cannula. Initial documentation shows she was 90% on room air. 09/05/2020. No acute events overnight. Shortness of breath improving, denies any fever, chills, nausea, vomiting. Denies any chest pain. SPO2 WNL on 2 L nasal cannula. 09/06/2020. No acute events overnight. Patient still complaining of pleuritic chest pain and cough, shortness of breath improving, denies any fever, chills, nausea, vomiting, diarrhea, constipation or any urinary symptoms. P.o. tolerant. Having normal bowel and bladder movements. Patient has tested negative for COVID-19. Will be transferred to regular floor. Reason For Visit: PNEUOMONIA V. PNEUMONITIS Physical Exam Vital Signs: Temp Pulse Resp BP Pulse Ox 98.3 F 89 16 121/66 96 09/06/20 08:00 09/06/20 07:00 09/06/20 03:45 09/06/20 03:45 09/06/20 03:45 Pulse Oximeter Continuous Start: 09/04/20 22:34 Freq: RTQ4 Status: Hold Protocol: Document 09/05/20 11:31 HIRAL (Rec: 09/05/20 11:31 HIRAL [email or web address]) Pulse Oximetry Assessment Equipment Usage Equipment Standby Continuous SpO2 Machine # 0 Additional RT Notes Other on nurse monitor Intake & Output 09/05/20 09/06/20 09/07/20 06:59 06:59 06:59 Intake Total 1250 1320 Balance 1250 1320 Weight 72.3 kg 44.7 kg General appearance: PRESENT: no acute distress, mild distress, well-developed, well-nourished Head exam: PRESENT: atraumatic, normocephalic Neck exam: ABSENT: carotid bruit, JVD, lymphadenopathy, thyromegaly Respiratory exam: PRESENT: clear to auscultation alcides. ABSENT: rales, rhonchi, wheezes Cardiovascular exam: PRESENT: RRR. ABSENT: diastolic murmur, rubs, systolic murmur Extremities exam: PRESENT: full ROM. ABSENT: calf tenderness, clubbing, pedal edema Musculoskeletal exam: PRESENT: other - Left lateral chest tenderness to palpation. Neurological exam: PRESENT: alert, awake, oriented to person, oriented to place, oriented to time, oriented to situation, CN II-XII grossly intact. ABSENT: motor sensory deficit Results Laboratory Results: 09/06/20 04:52 09/06/20 04:52 09/06/20 09/06/20 04:52 04:52 WBC 20.9 H RBC 3.44 L Hgb 10.1 L Hct 30.7 L MCV 89 MCH 29.5 MCHC 33.0 RDW 14.0 Plt Count 755 H Seg Neutrophils % Not Reportable Sodium 135.6 L Potassium 4.4 Chloride 103 Carbon Dioxide 27 Anion Gap 6 BUN 2 L Creatinine 0.42 L Est GFR ( Amer) > 60 Glucose 96 Calcium 8.1 L Magnesium 1.9 Total Bilirubin 0.4 AST 23 Alkaline Phosphatase 60 Total Protein 5.1 L Albumin 2.6 L 09/04/20 20:17 Sputum Gram Stain - Final 09/04/20 20:17 Sputum Sputum Culture - Final NORMAL PAXTON 09/04/20 09/05/20 15:25 18:08 Troponin I < 0.012 NT-Pro-B Natriuret Pep 88 Impressions: Chest X-Ray 09/04/20 14:55 IMPRESSION: Diffuse bilateral airspace disease. Chest/Abdomen CTA 09/04/20 18:35 IMPRESSION: No acute pulmonary embolism. Extensive bilateral diffuse pneumonia, suspicious for Covid etiology, correlate clinically. Mild right pleural effusion. Assessment and Plan - Diagnosis (1) Acute hypoxemic respiratory failure Is this a current diagnosis for this admission?: Yes Plan: Improving. SPO2 WNL on 3 L nasal cannula. Still complaining of persistent cough and pleuritic chest pain. Secondary to interstitial pneumonia/pneumonitis Presented with PO2 59 on 2 L nasal cannula. CTA chest on admission negative for PE. Extensive bilateral diffuse pneumonia right pleural effusion. Continue broad-spectrum empiric IV antibiotics, IV steroids, LAMA, LABA, ICS, flutter valve, incentive spirometry, duo nebs, pulmonary toileting. 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 CTA appearance also fits this etiology. It is possible that this is the culprit here especially she has not responded to antibiotics, Tamiflu Continue Solu-Medrol. Advised on abstaining from vaping. Outpatient PCP and pulmonology follow-up. (3) History of Clostridioides difficile infection Is this a current diagnosis for this admission?: Yes Plan: C. difficile toxin negative. No diarrhea. DC vancomycin. (4) Interstitial pneumonia Is this a current diagnosis for this admission?: Yes Plan: CTA chest shows no PE but does show extensive bilateral interstitial infiltrates. Leukocytosis over 20,000, SIRS and inflammatory markers are quite high. Not septic. Patient reports having 2 negative Covid tests this month. Flu test is also negative. Suspicion is for interstitial pneumonia or pneumonitis. Completed course of azithromycin which should help with atypical infections such as Legionella. Denies any rheumatologic diseases or symptoms. Plan as per #1. (5) Suspected COVID-19 virus infection Is this a current diagnosis for this admission?: Yes Plan: Denies any exposure to anybody with COVID-19 infection. COVID-19 test came back negative. - Time Time Spent with patient: 35 or more minutes Smoking Cessation Education: 3 to 10 minutes Medications reviewed and adjusted accordingly: Yes Anticipated Discharge Disposition: Home, Self Care Anticipated Discharge Timeframe: within 48 hours
[2020-09-06] MEDS: IPRATROPIUM/ALBUTEROL 0.5-2.5 MG/3 ML AMPUL NEB SCH ×2 (13:59→20:35)
[2020-09-06] MEDS: GUAIFENESIN/CODEINE PHOS 100-10 MG/ 5 ML UDC PO SCH ×3 (15:11→21:20)
[2020-09-06] MEDS: LIDOCAINE 5% (700 MG) TRANSDERMAL ADH..PATCH TP SCH (15:17)
[2020-09-06] MEDS: METHYLPREDNISOLONE INJ 40 MG/1 ML SDV IV SCH (21:20)
[2020-09-06] MEDS: LEVOFLOXACIN 750 MG/D5W RTU 750 MG/150 ML RTUPB IV SCH (21:20)
[2020-09-07] MEDS: MORPHINE SULFATE 10 MG/ML INJ IV PRN ×2 (03:40→11:06)
[2020-09-07 05:58] LABS: ABSOLUTE BASOPHILS # (AUTO) 0.1 10^3/uL (0.0-0.2); ABSOLUTE EOSINOPHILS # (AUTO) 0.1 10^3/uL (0.0-0.6); ABSOLUTE MONOCYTES (AUTO) 0.7 10^3/uL (0.1-1.4); ABSOLUTE NEUT (AUTO) 17.7 10^3/uL (1.7-8.2); BASOPHILS % (AUTO) 0.3 % (0-2); EOSINOPHILS % (AUTO) 0.6 % (0-6); HEMATOCRIT 31.7 % (36.0-47.0); HEMOGLOBIN 10.5 g/dL (12.0-15.5); LYMPHOCYTES % (AUTO) 5.3 % (13-45); MEAN CORPUSCULAR HEMOGLOBIN 29.2 pg (27.0-33.4); MEAN CORPUSCULAR VOLUME 89 fl (80-97); MONOCYTES % (AUTO) 3.6 % (3-13); PLATELET COUNT 820 10^3/uL (150-450); RED BLOOD COUNT 3.58 10^6/uL (3.72-5.28); RED CELL DISTRIBUTION WIDTH 14.2 % (11.5-14.0); SEGMENTED NEUTROPHILS % (AUTO) 90.2 % (42-78); TOTAL CELLS COUNTED % (AUTO) 100 %; WHITE BLOOD COUNT 19.7 10^3/uL (4.0-10.5)
[2020-09-07 06:23] LABS: ALBUMIN 2.9 g/dL (3.5-5.0); ALKALINE PHOSPHATASE 80 U/L (38-126); ANION GAP 7 (5-19); ASPARTATE AMINO TRANSFERASE 20 U/L (14-36); BILIRUBIN,DIRECT 0.1 mg/dL (0.0-0.4); BILIRUBIN,TOTAL 0.3 mg/dL (0.2-1.3); BLOOD UREA NITROGEN 6 mg/dL (7-20); CALCIUM 8.7 mg/dL (8.4-10.2); CARBON DIOXIDE 26 mmol/L (22-30); CHLORIDE 101 mmol/L (98-107); GLUCOSE 132 mg/dL (75-110); POTASSIUM 5.2 mmol/L (3.6-5.0); TOTAL PROTEIN 5.7 g/dL (6.3-8.2)
[2020-09-07] MEDS: IPRATROPIUM/ALBUTEROL 0.5-2.5 MG/3 ML AMPUL NEB SCH ×3 (08:03→19:40)
--- NOTE | 2020-09-07 10:15 | PDOC PROGRESS REPORT ---
Subjective Date:: 09/07/20 Subjective:: BRITTANY STEELE is a 35 year old female with no significant chronic medical issues, who presents to the hospital for evaluation of progressively worsening shortness of breath and cough. Patient was recently seen at [facility] where she was treated for pyelonephritis at the beginning of the month. She subsequently was hospitalized from Friday to Friday last week for treatment of pneumonia and C. difficile infection. She was discharged on vancomycin and azithromycin. She also was discharged on Tamiflu. She states she completed the Tamiflu and azithromycin but stopped taking the vancomycin because it made her feel sicker. She continues to have progressive worsening shortness of breath and dry hacking cough. She states she was tested for COVID-19 during her last hospitalization which was negative. She was also tested at the beginning of the month for COVID-19 which was also negative. She is not certain that her flu test was positive though she was sent home on Tamiflu. She denies any sick contacts. Denies any rashes. She states her diarrhea has resolved as well. Seen in the ER today and noted to be hypoxic and was placed on 2 L nasal cannula. Initial documentation shows she was 90% on room air. 09/05/2020. No acute events overnight. Shortness of breath improving, denies any fever, chills, nausea, vomiting. Denies any chest pain. SPO2 WNL on 2 L nasal cannula. 09/06/2020. No acute events overnight. Patient still complaining of pleuritic chest pain and cough, shortness of breath improving, denies any fever, chills, nausea, vomiting, diarrhea, constipation or any urinary symptoms. P.o. tolerant. Having normal bowel and bladder movements. Patient has tested negative for COVID-19. Will be transferred to regular floor. 09/07/2020. No acute events overnight. Still complaining of persistent cough which has improved since yesterday, pleuritic chest pain is also improving, denies any fever, chills, nausea, vomiting, diarrhea, constipation or any urinary symptoms. Reason For Visit: PNEUOMONIA V. PNEUMONITIS Physical Exam Vital Signs: Temp Pulse Resp BP Pulse Ox 97.7 F 64 16 92/61 L 91 L 09/07/20 03:27 09/07/20 08:03 09/07/20 08:03 09/07/20 03:27 09/07/20 08:03 Pulse Oximeter Continuous Start: 09/04/20 22:34 Freq: RTQ4 Status: Hold Protocol: Document 09/05/20 11:31 HIRAL (Rec: 09/05/20 11:31 HIRAL [email or web address]) Pulse Oximetry Assessment Equipment Usage Equipment Standby Continuous SpO2 Machine # 0 Additional RT Notes Other on nurse monitor Intake & Output 09/06/20 09/07/20 09/08/20 06:59 06:59 06:59 Intake Total 1320 3060 Balance 1320 3060 Weight 44.7 kg 44.6 kg General appearance: PRESENT: no acute distress, well-developed, well-nourished Head exam: PRESENT: atraumatic, normocephalic Respiratory exam: PRESENT: clear to auscultation alcides. ABSENT: rales, rhonchi, wheezes Cardiovascular exam: PRESENT: RRR. ABSENT: diastolic murmur, rubs, systolic murmur GI/Abdominal exam: PRESENT: normal bowel sounds, soft. ABSENT: distended, guarding, mass, organolmegaly, rebound, tenderness Neurological exam: PRESENT: alert, awake, oriented to person, oriented to place, oriented to time, oriented to situation, CN II-XII grossly intact. ABSENT: motor sensory deficit Results Laboratory Results: 09/07/20 05:20 09/07/20 05:20 09/06/20 09/07/20 09/07/20 04:52 05:20 05:20 WBC 20.9 H 19.7 H RBC 3.44 L 3.58 L Hgb 10.1 L 10.5 L Hct 30.7 L 31.7 L MCV 89 89 MCH 29.5 29.2 MCHC 33.0 33.0 RDW 14.0 14.2 H Plt Count 755 H 820 H Seg Neutrophils % Not Reportable 90.2 H Sodium 134.2 L Potassium 5.2 H Chloride 101 Carbon Dioxide 26 Anion Gap 7 BUN 6 L Creatinine 0.41 L Est GFR ( Amer) > 60 Glucose 132 H Calcium 8.7 Total Bilirubin 0.3 AST 20 Alkaline Phosphatase 80 Total Protein 5.7 L Albumin 2.9 L 09/04/20 20:17 Sputum Gram Stain - Final 09/04/20 20:17 Sputum Sputum Culture - Final NORMAL PAXTON 09/04/20 09/05/20 15:25 18:08 Troponin I < 0.012 NT-Pro-B Natriuret Pep 88 Impressions: Chest X-Ray 09/04/20 14:55 IMPRESSION: Diffuse bilateral airspace disease. Chest/Abdomen CTA 09/04/20 18:35 IMPRESSION: No acute pulmonary embolism. Extensive bilateral diffuse pneumonia, suspicious for Covid etiology, correlate clinically. Mild right pleural effusion. Assessment and Plan - Diagnosis (1) Acute hypoxemic respiratory failure Is this a current diagnosis for this admission?: Yes Plan: Improving. SPO2 WNL on 3 L nasal cannula. Still complaining of persistent cough and pleuritic chest pain. Secondary to interstitial pneumonia/pneumonitis Presented with PO2 59 on 2 L nasal cannula. CTA chest on admission negative for PE. Extensive bilateral diffuse pneumonia right pleural effusion. Continue broad-spectrum empiric IV antibiotics, IV steroids, LAMA, LABA, ICS, flutter valve, incentive spirometry, duo nebs, pulmonary toileting. 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 CTA appearance also fits this etiology. It is possible that this is the culprit here especially she has not responded to antibiotics, Tamiflu Continue Solu-Medrol. Advised on abstaining from vaping. Outpatient PCP and pulmonology follow-up. (3) History of Clostridioides difficile infection Is this a current diagnosis for this admission?: Yes Plan: C. difficile toxin negative. No diarrhea. DC vancomycin. (4) Interstitial pneumonia Is this a current diagnosis for this admission?: Yes Plan: CTA chest shows no PE but does show extensive bilateral interstitial infilt rates. Leukocytosis over 20,000, SIRS and inflammatory markers are quite high. Not septic. Patient reports having 2 negative Covid tests this month. Flu test is also negative. Suspicion is for interstitial pneumonia or pneumonitis. Completed course of azithromycin which should help with atypical infections such as Legionella. Denies any rheumatologic diseases or symptoms. Plan as per #1. (5) Suspected COVID-19 virus infection Is this a current diagnosis for this admission?: Yes Plan: Denies any exposure to anybody with COVID-19 infection. COVID-19 test came back negative. - Time Time Spent with patient: 25-34 minutes Anticipated Discharge Disposition: Home, Self Care Anticipated Discharge Timeframe: within 48 hours
[2020-09-07] MEDS ORDERED: SODIUM POLYSTYRENE SULFONATE 15 GM/60 ML PO ONE (10:16)
[2020-09-07] MEDS: METHYLPREDNISOLONE INJ 40 MG/1 ML SDV IV SCH ×2 (10:51→22:14)
[2020-09-07] MEDS: FAMOTIDINE 20 MG TABLET PO SCH ×2 (10:51→22:14)
[2020-09-07] MEDS: GUAIFENESIN/CODEINE PHOS 100-10 MG/ 5 ML UDC PO SCH ×4 (10:51→22:12)
[2020-09-07] MEDS: ENOXAPARIN SODIUM INJ 40 MG/0.4 ML DISP.SYRIN SUBCUT SCH (10:51)
[2020-09-07] MEDS: LIDOCAINE 5% (700 MG) TRANSDERMAL ADH..PATCH TP SCH (11:10)
[2020-09-07] MEDS: ONDANSETRON HCL INJ/PF 4 MG/2 ML SDV IV PRN (11:15)
[2020-09-07] MEDS: LEVOFLOXACIN 750 MG/D5W RTU 750 MG/150 ML RTUPB IV SCH (22:12)
[2020-09-08] MEDS: MORPHINE SULFATE 10 MG/ML INJ IV PRN ×4 (02:58→21:00)
[2020-09-08] MEDS: ONDANSETRON HCL INJ/PF 4 MG/2 ML SDV IV PRN (03:04)
[2020-09-08] MEDS: ACETAMINOPHEN 325 MG TABLET PO PRN (06:11)
[2020-09-08 06:36] LABS: ABSOLUTE RETICS # 0.066 10^6/uL (0.028-0.122); HEMATOCRIT 33.7 % (36.0-47.0); HEMOGLOBIN 10.9 g/dL (12.0-15.5); MEAN CORPUSCULAR HEMOGLOBIN 28.8 pg (27.0-33.4); MEAN CORPUSCULAR HGB CONC 32.4 g/dL (32.0-36.0); MEAN CORPUSCULAR VOLUME 89 fl (80-97); PLATELET COUNT 948 10^3/uL (150-450); RED CELL DISTRIBUTION WIDTH 14.4 % (11.5-14.0); RETICULOCYTE COUNT (AUTO) 1.73 % (0.66-2.85); WHITE BLOOD COUNT 20.9 10^3/uL (4.0-10.5)
[2020-09-08 06:52] LABS: ALBUMIN 3.4 g/dL (3.5-5.0); ALKALINE PHOSPHATASE 78 U/L (38-126); ANION GAP 10 (5-19); ASPARTATE AMINO TRANSFERASE 24 U/L (14-36); BILIRUBIN,DIRECT 0.2 mg/dL (0.0-0.4); BILIRUBIN,TOTAL 0.4 mg/dL (0.2-1.3); BLOOD UREA NITROGEN 7 mg/dL (7-20); CARBON DIOXIDE 26 mmol/L (22-30); CHLORIDE 99 mmol/L (98-107); GLUCOSE 164 mg/dL (75-110); IRON(TIBC) 57.6 ug/dL (37-170); POTASSIUM 4.7 mmol/L (3.6-5.0); TOTAL PROTEIN 6.2 g/dL (6.3-8.2)
[2020-09-08 08:00] LABS: FOLATE 5.69 ng/mL (>2.76)
[2020-09-08] MEDS: IPRATROPIUM/ALBUTEROL 0.5-2.5 MG/3 ML AMPUL NEB SCH ×3 (08:14→21:03)
[2020-09-08] MEDS: GUAIFENESIN/CODEINE PHOS 100-10 MG/ 5 ML UDC PO SCH ×4 (10:57→21:46)
[2020-09-08] MEDS: FAMOTIDINE 20 MG TABLET PO SCH ×2 (10:57→21:46)
[2020-09-08] MEDS: METHYLPREDNISOLONE INJ 40 MG/1 ML SDV IV SCH ×2 (10:57→21:46)
[2020-09-08] MEDS: ENOXAPARIN SODIUM INJ 40 MG/0.4 ML DISP.SYRIN SUBCUT SCH (10:57)
[2020-09-08] MEDS: CEFEPIME 1 GM/D5W RTU 1 GM/50 ML RTUPB IV SCH ×2 (10:58→21:45)
[2020-09-08] MEDS: LIDOCAINE 5% (700 MG) TRANSDERMAL ADH..PATCH TP SCH (10:59)
--- NOTE | 2020-09-08 12:48 | PDOC PROGRESS REPORT ---
Subjective Date:: 09/08/20 Subjective:: BRITTANY STEELE is a 35 year old female with no significant chronic medical issues, who presents to the hospital for evaluation of progressively worsening shortness of breath and cough. Patient was recently seen at [facility] where she was treated for pyelonephritis at the beginning of the month. She subsequently was hospitalized from Friday to Friday last week for treatment of pneumonia and C. difficile infection. She was discharged on vancomycin and azithromycin. She also was discharged on Tamiflu. She states she completed the Tamiflu and azithromycin but stopped taking the vancomycin because it made her feel sicker. She continues to have progressive worsening shortness of breath and dry hacking cough. She states she was tested for COVID-19 during her last hospitalization which was negative. She was also tested at the beginning of the month for COVID-19 which was also negative. She is not certain that her flu test was positive though she was sent home on Tamiflu. She denies any sick contacts. Denies any rashes. She states her diarrhea has resolved as well. Seen in the ER today and noted to be hypoxic and was placed on 2 L nasal cannula. Initial documentation shows she was 90% on room air. 09/05/2020. No acute events overnight. Shortness of breath improving, denies any fever, chills, nausea, vomiting. Denies any chest pain. SPO2 WNL on 2 L nasal cannula. 09/06/2020. No acute events overnight. Patient still complaining of pleuritic chest pain and cough, shortness of breath improving, denies any fever, chills, nausea, vomiting, diarrhea, constipation or any urinary symptoms. P.o. tolerant. Having normal bowel and bladder movements. Patient has tested negative for COVID-19. Will be transferred to regular floor. 09/07/2020. No acute events overnight. Still complaining of persistent cough which has improved since yesterday, pleuritic chest pain is also improving, denies any fever, chills, nausea, vomiting, diarrhea, constipation or any urinary symptoms. 09/08/2020. Patient reporting significant improvement of her cough, pleuritic chest pain and shortness of breath however patient is having worsening leukocytosis, denies any fever, chills, nausea, vomiting. P.o. tolerant. Having normal bowel bladder movement. Ambulatory. SPO2 WNL on 2 L. Reason For Visit: PNEUOMONIA V. PNEUMONITIS Physical Exam Vital Signs: Temp Pulse Resp BP Pulse Ox 97.3 F 78 16 110/71 100 09/08/20 11:27 09/08/20 11:27 09/08/20 11:27 09/08/20 11:27 09/08/20 11:27 Pulse Oximeter Continuous Start: 09/04/20 22:34 Freq: RTQ4 Status: Complete Protocol: Document 09/05/20 11:31 HIRAL (Rec: 09/05/20 11:31 HIRAL [email or web address]) Pulse Oximetry Assessment Equipment Usage Equipment Standby Continuous SpO2 Machine # 0 Additional RT Notes Other on nurse monitor Intake & Output 09/07/20 09/08/20 09/09/20 06:59 06:59 06:59 Intake Total 3060 850 222 Balance 3060 850 222 Weight 44.6 kg 45 kg General appearance: PRESENT: no acute distress, well-developed, well-nourished Head exam: PRESENT: atraumatic, normocephalic Respiratory exam: PRESENT: clear to auscultation alcides. ABSENT: rales, rhonchi, wheezes Cardiovascular exam: PRESENT: RRR. ABSENT: diastolic murmur, rubs, systolic murmur GI/Abdominal exam: PRESENT: normal bowel sounds, soft. ABSENT: distended, guarding, mass, organolmegaly, rebound, tenderness Neurological exam: PRESENT: alert, awake, oriented to person, oriented to place, oriented to time, oriented to situation, CN II-XII grossly intact. ABSENT: motor sensory deficit Results Laboratory Results: 09/08/20 06:23 09/08/20 06:23 09/08/20 09/08/20 06:23 06:23 WBC 20.9 H RBC 3.80 Hgb 10.9 L Hct 33.7 L MCV 89 MCH 28.8 MCHC 32.4 RDW 14.4 H Plt Count 948 H Retic Count (auto) 1.73 Sodium 135.1 L Potassium 4.7 Chloride 99 Carbon Dioxide 26 Anion Gap 10 BUN 7 Creatinine 0.43 L Est GFR ( Amer) > 60 Glucose 164 H Calcium 9.0 Iron 57.6 TIBC 289 % Saturation 20 Ferritin 124.00 Total Bilirubin 0.4 AST 24 Alkaline Phosphatase 78 Total Protein 6.2 L Albumin 3.4 L Vitamin B12 506.0 Folate 5.69 09/04/20 09/05/20 15:25 18:08 Troponin I < 0.012 NT-Pro-B Natriuret Pep 88 Impressions: Chest X-Ray 09/04/20 14:55 IMPRESSION: Diffuse bilateral airspace disease. Chest/Abdomen CTA 09/04/20 18:35 IMPRESSION: No acute pulmonary embolism. Extensive bilateral diffuse pneumonia, suspicious for Covid etiology, correlate clinically. Mild right pleural effusion. Assessment and Plan - Diagnosis (1) Acute hypoxemic respiratory failure Is this a current diagnosis for this admission?: Yes Plan: Improving. SPO2 WNL on 2 L nasal cannula. Still complaining of persistent cough and pleuritic chest pain. Secondary to interstitial pneumonia/pneumonitis Presented with PO2 59 on 2 L nasal cannula. CTA chest on admission negative for PE. Extensive bilateral diffuse pneumonia right pleural effusion. Continue broad-spectrum empiric IV antibiotics, IV steroids, LAMA, LABA, ICS, flutter valve, incentive spirometry, duo nebs, pulmonary toileting. 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 CTA appearance also fits this etiology. It is possible that this is the culprit here especially she has not responded to antibiotics, Tamiflu Continue Solu-Medrol. Advised on abstaining from vaping. Outpatient PCP and pulmonology follow-up. (3) History of Clostridioides difficile infection Is this a current diagnosis for this admission?: Yes Plan: C. difficile toxin negative. No diarrhea. DC vancomycin. (4) Interstitial pneumonia Is this a current diagnosis for this admission?: Yes Plan: CTA chest shows no PE but does show extensive bilateral interstitial infiltrates. Leukocytosis over 20,000, SIRS and inflammatory markers are quite high. Not septic. Patient reports having 2 negative Covid tests this month. Flu test is also negative. Suspicion is for interstitial pneumonia or pneumonitis. Completed course of azithromycin which should help with atypical infections such as Legionella. Denies any rheumatologic diseases or symptoms. Plan as per #1. (5) Suspected COVID-19 virus infection Is this a current diagnosis for this admission?: Yes Plan: Denies any exposure to anybody with COVID-19 infection. COVID-19 test came back negative. - Time Time Spent with patient: 25-34 minutes Smoking Cessation Education: 3 to 10 minutes Medications reviewed and adjusted accordingly: Yes Anticipated Discharge Disposition: Home, Self Care Anticipated Discharge Timeframe: within 48 hours
[2020-09-08] MEDS: TEMAZEPAM 15 MG CAPSULE PO PRN (23:09)
[2020-09-09] MEDS: MORPHINE SULFATE 10 MG/ML INJ IV PRN ×3 (05:52→18:52)
[2020-09-09 06:00] LABS: HEMATOCRIT 34.2 % (36.0-47.0); HEMOGLOBIN 11.3 g/dL (12.0-15.5); MEAN CORPUSCULAR HEMOGLOBIN 29.5 pg (27.0-33.4); MEAN CORPUSCULAR HGB CONC 33.1 g/dL (32.0-36.0); MEAN CORPUSCULAR VOLUME 89 fl (80-97); RED BLOOD COUNT 3.83 10^6/uL (3.72-5.28); RED CELL DISTRIBUTION WIDTH 14.8 % (11.5-14.0); WHITE BLOOD COUNT 20.6 10^3/uL (4.0-10.5)
[2020-09-09 07:12] LABS: PLATELET COUNT 1103 10^3/uL (150-450)
[2020-09-09 07:15] LABS: ABSOLUTE LYMPHOCYTES# (MANUAL) 2.1 10^3/uL (0.5-4.7); ABSOLUTE MONOCYTES # (MANUAL) 1.2 10^3/uL (0.1-1.4); BASOPHILS % (MANUAL) 0 % (0-2); EOSINOPHILS % (MANUAL) 0 % (0-6); LYMPHOCYTES % (MANUAL) 10 % (13-45); MONOCYTES % (MANUAL) 6 % (3-13); SEGMENTED NEUTROPHILS % (MAN) 84 % (42-78); TOTAL CELLS COUNTED 100
[2020-09-09 07:19] LABS: ANISOCYTOSIS SLIGHT; OVALOCYTES SLIGHT; PLATELET COMMENT INCREASED; POIKILOCYTOSIS SLIGHT; TEAR DROP CELLS SLIGHT; TOXIC GRANULATION SLIGHT; TOXIC VACUOLATION PRESENT
[2020-09-09] MEDS: IPRATROPIUM/ALBUTEROL 0.5-2.5 MG/3 ML AMPUL NEB SCH (09:11)
[2020-09-09] MEDS: GUAIFENESIN/CODEINE PHOS 100-10 MG/ 5 ML UDC PO SCH ×4 (09:37→23:17)
[2020-09-09] MEDS: ENOXAPARIN SODIUM INJ 40 MG/0.4 ML DISP.SYRIN SUBCUT SCH (09:37)
[2020-09-09] MEDS: FAMOTIDINE 20 MG TABLET PO SCH ×2 (09:37→23:17)
[2020-09-09] MEDS: METHYLPREDNISOLONE INJ 40 MG/1 ML SDV IV SCH ×2 (09:37→23:17)
[2020-09-09] MEDS: LIDOCAINE 5% (700 MG) TRANSDERMAL ADH..PATCH TP SCH (09:37)
[2020-09-09] MEDS: CEFEPIME 1 GM/D5W RTU 1 GM/50 ML RTUPB IV SCH ×2 (09:38→23:17)
--- NOTE | 2020-09-09 11:08 | PDOC PROGRESS REPORT ---
Subjective Date:: 09/09/20 Subjective:: BRITTANY STEELE is a 35 year old female with no significant chronic medical issues, who presents to the hospital for evaluation of progressively worsening shortness of breath and cough. Patient was recently seen at [facility] where she was treated for pyelonephritis at the beginning of the month. She subsequently was hospitalized from Friday to Friday last week for treatment of pneumonia and C. difficile infection. She was discharged on vancomycin and azithromycin. She also was discharged on Tamiflu. She states she completed the Tamiflu and azithromycin but stopped taking the vancomycin because it made her feel sicker. She continues to have progressive worsening shortness of breath and dry hacking cough. She states she was tested for COVID-19 during her last hospitalization which was negative. She was also tested at the beginning of the month for COVID-19 which was also negative. She is not certain that her flu test was positive though she was sent home on Tamiflu. She denies any sick contacts. Denies any rashes. She states her diarrhea has resolved as well. Seen in the ER today and noted to be hypoxic and was placed on 2 L nasal cannula. Initial documentation shows she was 90% on room air. 09/05/2020. No acute events overnight. Shortness of breath improving, denies any fever, chills, nausea, vomiting. Denies any chest pain. SPO2 WNL on 2 L nasal cannula. 09/06/2020. No acute events overnight. Patient still complaining of pleuritic chest pain and cough, shortness of breath improving, denies any fever, chills, nausea, vomiting, diarrhea, constipation or any urinary symptoms. P.o. tolerant. Having normal bowel and bladder movements. Patient has tested negative for COVID-19. Will be transferred to regular floor. 09/07/2020. No acute events overnight. Still complaining of persistent cough which has improved since yesterday, pleuritic chest pain is also improving, denies any fever, chills, nausea, vomiting, diarrhea, constipation or any urinary symptoms. 09/08/2020. Patient reporting significant improvement of her cough, pleuritic chest pain and shortness of breath however patient is having worsening leukocytosis, denies any fever, chills, nausea, vomiting. P.o. tolerant. Having normal bowel bladder movement. Ambulatory. SPO2 WNL on 2 L. 09/09/2020. No acute events overnight. Reporting improvement of her symptoms, p.o. tolerant, ambulatory, having normal bowel and bladder movement, CONTRACTS ANALYST O2 dependent, could be potentially discharge but unfortunately patient is having significant leukocytosis and worsening thrombocytosis. Reason For Visit: PNEUOMONIA V. PNEUMONITIS Physical Exam Vital Signs: Temp Pulse Resp BP Pulse Ox 98.2 F 110 H 18 115/61 96 09/09/20 08:35 09/09/20 09:11 09/09/20 09:11 09/09/20 07:27 09/09/20 09:11 Pulse Oximeter Continuous Start: 09/04/20 22:34 Freq: RTQ4 Status: Complete Protocol: Document 09/05/20 11:31 HIRAL (Rec: 09/05/20 11:31 HIRAL [email or web address]) Pulse Oximetry Assessment Equipment Usage Equipment Standby Continuous SpO2 Machine # 0 Additional RT Notes Other on nurse monitor Intake & Output 09/08/20 09/09/20 09/10/20 06:59 06:59 06:59 Intake Total 850 966 50 Output Total 300 Balance 850 666 50 Weight 45 kg 45 kg General appearance: PRESENT: no acute distress, well-developed, well-nourished Head exam: PRESENT: atraumatic, normocephalic Respiratory exam: PRESENT: clear to auscultation alcides. ABSENT: rales, rhonchi, wheezes Cardiovascular exam: PRESENT: RRR. ABSENT: diastolic murmur, rubs, systolic murmur GI/Abdominal exam: PRESENT: normal bowel sounds, soft. ABSENT: distended, guarding, mass, organolmegaly, rebound, tenderness Neurological exam: PRESENT: alert, awake, oriented to person, oriented to place, oriented to time, oriented to situation, CN II-XII grossly intact. ABSENT: mo tor sensory deficit Results Laboratory Results: 09/09/20 05:38 09/08/20 06:23 09/09/20 05:38 WBC 20.6 H RBC 3.83 Hgb 11.3 L Hct 34.2 L MCV 89 MCH 29.5 MCHC 33.1 RDW 14.8 H Plt Count 1103 H* Seg Neutrophils % Not Reportable 09/04/20 09/05/20 15:25 18:08 Troponin I < 0.012 NT-Pro-B Natriuret Pep 88 Impressions: Chest X-Ray 09/04/20 14:55 IMPRESSION: Diffuse bilateral airspace disease. Chest/Abdomen CTA 09/04/20 18:35 IMPRESSION: No acute pulmonary embolism. Extensive bilateral diffuse pneumonia, suspicious for Covid etiology, correlate clinically. Mild right pleural effusion. Assessment and Plan - Diagnosis (1) Acute hypoxemic respiratory failure Is this a current diagnosis for this admission?: Yes Plan: Improving. SPO2 WNL on 1 L nasal cannula. Afebrile, worsening leukocytosis and thrombocytosis. Secondary to interstitial pneumonia/pneumonitis Presented with PO2 59 on 2 L nasal cannula. CTA chest on admission negative for PE. Extensive bilateral diffuse pneumonia right pleural effusion. Continue broad-spectrum empiric IV antibiotics, IV steroids, LAMA, LABA, ICS, flutter valve, incentive spirometry, duo nebs, pulmonary toileting. 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 CTA appearance also fits this etiology. It is possible that this is the culprit here especially she has not responded to antibiotics, Tamiflu Continue Solu-Medrol. Advised on abstaining from vaping. Outpatient PCP and pulmonology follow-up. (3) History of Clostridioides difficile infection Is this a current diagnosis for this admission?: Yes Plan: C. difficile toxin negative. No diarrhea. DC vancomycin. (4) Interstitial pneumonia Is this a current diagnosis for this admission?: Yes Plan: CTA chest shows no PE but does show extensive bilateral interstitial infiltrates. Leukocytosis over 20,000, SIRS and inflammatory markers are quite high. Not septic. Patient reports having 2 negative Covid tests this month. Flu test is also neg ative. Suspicion is for interstitial pneumonia or pneumonitis. Completed course of azithromycin which should help with atypical infections such as Legionella. Denies any rheumatologic diseases or symptoms. Plan as per #1. (5) Suspected COVID-19 virus infection Is this a current diagnosis for this admission?: Yes Plan: Denies any exposure to anybody with COVID-19 infection. COVID-19 test came back negative. (6) Thrombocytosis Is this a current diagnosis for this admission?: Yes Plan: Unidentified reason. Iron panel WNL. Pending TSH. Could be secondary to acute infection. Continue DVT prophylaxis. Hematology consulted. - Time Time Spent with patient: 25-34 minutes Anticipated Discharge Disposition: Home, Self Care Anticipated Discharge Timeframe: within 24 hours
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
[2020-09-09] MEDS: ONDANSETRON HCL INJ/PF 4 MG/2 ML SDV IV PRN (14:30)
[2020-09-09] MEDS: IPRATROPIUM BROMIDE 0.02% NEB 0.5 MG/2.5 ML AMPUL NEB SCH (15:52)
[2020-09-09] MEDS: TEMAZEPAM 15 MG CAPSULE PO PRN (23:37)
[2020-09-10] MEDS: MORPHINE SULFATE 10 MG/ML INJ IV PRN ×4 (00:01→21:11)
[2020-09-10] MEDS: IPRATROPIUM BROMIDE 0.02% NEB 0.5 MG/2.5 ML AMPUL NEB SCH ×3 (01:08→17:01)
[2020-09-10] MEDS: ACETAMINOPHEN 325 MG TABLET PO PRN (06:24)
[2020-09-10 07:24] LABS: ABSOLUTE LYMPHOCYTES (AUTO) 0.9 10^3/uL (0.5-4.7); ABSOLUTE MONOCYTES (AUTO) 0.7 10^3/uL (0.1-1.4); ABSOLUTE NEUT (AUTO) 14.5 10^3/uL (1.7-8.2); BASOPHILS % (AUTO) 0.2 % (0-2); EOSINOPHILS % (AUTO) 0.1 % (0-6); HEMATOCRIT 32.5 % (36.0-47.0); HEMOGLOBIN 10.7 g/dL (12.0-15.5); LYMPHOCYTES % (AUTO) 5.6 % (13-45); MEAN CORPUSCULAR HEMOGLOBIN 29.4 pg (27.0-33.4); MEAN CORPUSCULAR HGB CONC 32.8 g/dL (32.0-36.0); MEAN CORPUSCULAR VOLUME 90 fl (80-97); MONOCYTES % (AUTO) 4.4 % (3-13); PLATELET COUNT 880 10^3/uL (150-450); RED BLOOD COUNT 3.62 10^6/uL (3.72-5.28); RED CELL DISTRIBUTION WIDTH 14.3 % (11.5-14.0); SEGMENTED NEUTROPHILS % (AUTO) 89.7 % (42-78); TOTAL CELLS COUNTED % (AUTO) 100 %; WHITE BLOOD COUNT 16.1 10^3/uL (4.0-10.5)
--- NOTE | 2020-09-10 09:46 | PDOC PROGRESS REPORT ---
Subjective Date:: 09/10/20 Subjective:: BRITTANY STEELE is a 35 year old female with no significant chronic medical issues, who presents to the hospital for evaluation of progressively worsening shortness of breath and cough. Patient was recently seen at [facility] where she was treated for pyelonephritis at the beginning of the month. She subsequently was hospitalized from Friday to Friday last week for treatment of pneumonia and C. difficile infection. She was discharged on vancomycin and azithromycin. She also was discharged on Tamiflu. She states she completed the Tamiflu and azithromycin but stopped taking the vancomycin because it made her feel sicker. She continues to have progressive worsening shortness of breath and dry hacking cough. She states she was tested for COVID-19 during her last hospitalization which was negative. She was also tested at the beginning of the month for COVID-19 which was also negative. She is not certain that her flu test was positive though she was sent home on Tamiflu. She denies any sick contacts. Denies any rashes. She states her diarrhea has resolved as well. Seen in the ER today and noted to be hypoxic and was placed on 2 L nasal cannula. Initial documentation shows she was 90% on room air. 09/05/2020. No acute events overnight. Shortness of breath improving, denies any fever, chills, nausea, vomiting. Denies any chest pain. SPO2 WNL on 2 L nasal cannula. 09/06/2020. No acute events overnight. Patient still complaining of pleuritic chest pain and cough, shortness of breath improving, denies any fever, chills, nausea, vomiting, diarrhea, constipation or any urinary symptoms. P.o. tolerant. Having normal bowel and bladder movements. Patient has tested negative for COVID-19. Will be transferred to regular floor. 09/07/2020. No acute events overnight. Still complaining of persistent cough which has improved since yesterday, pleuritic chest pain is also improving, denies any fever, chills, nausea, vomiting, diarrhea, constipation or any urinary symptoms. 09/08/2020. Patient reporting significant improvement of her cough, pleuritic chest pain and shortness of breath however patient is having worsening leukocytosis, denies any fever, chills, nausea, vomiting. P.o. tolerant. Having normal bowel bladder movement. Ambulatory. SPO2 WNL on 2 L. 09/09/2020. No acute events overnight. Reporting improvement of her symptoms, p.o. tolerant, ambulatory, having normal bowel and bladder movement, PROFESSIONAL ENGINEER O2 dependent, could be potentially discharge but unfortunately patient is having significant leukocytosis and worsening thrombocytosis. 09/10/2020. No acute events overnight. Shortness of breath improving, patient still having significant leukocytosis and thrombocytosis however improving compared to yesterday, denies any fever, chills, nausea, vomiting, diarrhea, constipation or any urinary symptoms. Possible discharge home tomorrow. Reason For Visit: PNEUOMONIA V. PNEUMONITIS Physical Exam Vital Signs: Temp Pulse Resp BP Pulse Ox 97.7 F 91 16 116/61 97 09/10/20 07:10 09/10/20 09:15 09/10/20 09:15 09/10/20 07:10 09/10/20 09:15 Pulse Oximeter Continuous Start: 09/04/20 22:34 Freq: RTQ4 Status: Complete Protocol: Document 09/05/20 11:31 HIRAL (Rec: 09/05/20 11:31 HIRAL [email or web address]) Pulse Oximetry Assessment Equipment Usage Equipment Standby Continuous SpO2 Machine # 0 Additional RT Notes Other on nurse monitor Intake & Output 09/09/20 09/10/20 09/11/20 06:59 06:59 06:59 Intake Total 966 821 Output Total 300 Balance 666 821 Weight 45 kg 47.7 kg General appearance: PRESENT: no acute distress, well-developed, well-nourished Head exam: PRESENT: atraumatic, normocephalic Neck exam: ABSENT: carotid bruit, JVD, lymphadenopathy, thyromegaly Respiratory exam: PRESENT: clear to auscultation alcides. ABSENT: rales, rhonchi, wheezes Cardiovascular exam: PRESENT: RRR. ABSENT: diastolic murmur, rubs, systolic murmur GI/Abdominal exam: PRESENT: normal bowel sounds, soft. ABSENT: distended, guarding, mass, organolmegaly, rebound, tenderness Neurological exam: PRESENT: alert, awake, oriented to person, oriented to place, oriented to time, oriented to situation, CN II-XII grossly intact. ABSENT: motor sensory deficit Results Laboratory Results: 09/10/20 06:50 09/08/20 06:23 09/09/20 09/10/20 11:25 06:50 WBC 16.1 H RBC 3.62 L Hgb 10.7 L Hct 32.5 L MCV 90 MCH 29.4 MCHC 32.8 RDW 14.3 H Plt Count 880 H Seg Neutrophils % 89.7 H TSH 0.85 09/04/20 21:24 Blood Blood Culture - Final NO GROWTH IN 5 DAYS 09/04/20 19:31 Blood Blood Culture - Final NO GROWTH IN 5 DAYS 09/04/20 09/05/20 15:25 18:08 Troponin I < 0.012 NT-Pro-B Natriuret Pep 88 Impressions: Chest X-Ray 09/04/20 14:55 IMPRESSION: Diffuse bilateral airspace disease. Chest/Abdomen CTA 09/04/20 18:35 IMPRESSION: No acute pulmonary embolism. Extensive bilateral diffuse pneumonia, suspicious for Covid etiology, correlate clinically. Mild right pleural effusion. Assessment and Plan - Diagnosis (1) Acute hypoxemic respiratory failure Is this a current diagnosis for this admission?: Yes Plan: Improving. SPO2 WNL on 1 L nasal cannula. Afebrile, improvimg leukocytosis and thrombocytosis. Secondary to interstitial pneumonia/pneumonitis Presented with PO2 59 on 2 L nasal cannula. CTA chest on admission negative for PE. Extensive bilateral diffuse pneumonia right pleural effusion. Continue broad-spectrum empiric IV antibiotics, IV steroids, LAMA, LABA, ICS, flutter valve, incentive spirometry, duo nebs, pulmonary toileting. 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 CTA appearance also fits this etiology. It is possible that this is the culprit here especially she has not responded to antibiotics, Tamiflu Continue Solu-Medrol. Advised on abstaining from vaping. Outpatient PCP and pulmonology follow-up. (3) History of Clostridioides difficile infection Is this a current diagnosis for this admission?: Yes Plan: C. difficile toxin negative. No diarrhea. DC vancomycin. (4) Interstitial pneumonia Is this a current diagnosis for this admission?: Yes Plan: CTA chest shows no PE but does show extensive bilateral interstitial infiltrates. Leukocytosis over 20,000, SIRS and inflammatory markers are quite high. Not septic. Patient reports having 2 negative Covid tests this month. Flu test is also negative. Suspicion is for interstitial pneumonia or pneumonitis. Completed course of azithromycin which should help with atypical infections such as Legionella. Denies any rheumatologic diseases or symptoms. Plan as per #1. (5) Suspected COVID-19 virus infection Is this a current diagnosis for this admission?: Yes Plan: Denies any exposure to anybody with COVID-19 infection. COVID-19 test came back negative. (6) Thrombocytosis Is this a current diagnosis for this admission?: Yes Plan: Improving. Iron panel WNL. TSH WNL. Could be secondary to acute infection. Continue DVT prophylaxis. Hematology consulted. Recommendations noted. - Time Time Spent with patient: 25-34 minutes Anticipated Discharge Disposition: Home, Self Care Anticipated Discharge Timeframe: within 24 hours
[2020-09-10] MEDS: METHYLPREDNISOLONE INJ 40 MG/1 ML SDV IV SCH ×2 (10:19→21:11)
[2020-09-10] MEDS: GUAIFENESIN/CODEINE PHOS 100-10 MG/ 5 ML UDC PO SCH ×4 (10:19→21:10)
[2020-09-10] MEDS: FAMOTIDINE 20 MG TABLET PO SCH ×2 (10:19→21:10)
[2020-09-10] MEDS: CEFEPIME 1 GM/D5W RTU 1 GM/50 ML RTUPB IV SCH ×2 (10:19→21:10)
[2020-09-10] MEDS: ENOXAPARIN SODIUM INJ 40 MG/0.4 ML DISP.SYRIN SUBCUT SCH (10:20)
[2020-09-10] MEDS: LIDOCAINE 5% (700 MG) TRANSDERMAL ADH..PATCH TP SCH (10:20)
--- NOTE | 2020-09-10 12:40 | PDOC PROGRESS REPORT ---
Subjective Date:: 09/10/20 Subjective:: Patient up walking around her room. Reports feeling much better today. Anxious to go home. Reason For Visit: PNEUOMONIA V. PNEUMONITIS Physical Exam Vital Signs: Temp Pulse Resp BP Pulse Ox 97.7 F 97 18 139/85 H 99 09/10/20 11:11 09/10/20 11:11 09/10/20 11:11 09/10/20 11:11 09/10/20 11:11 Pulse Oximeter Continuous Start: 09/04/20 22:34 Freq: RTQ4 Status: Complete Protocol: Document 09/05/20 11:31 HIRAL (Rec: 09/05/20 11:31 J [email or web address]) Pulse Oximetry Assessment Equipment Usage Equipment Standby Continuous SpO2 Machine # 0 Additional RT Notes Other on nurse monitor Intake & Output 09/09/20 09/10/20 09/11/20 06:59 06:59 06:59 Intake Total 966 871 Output Total 300 Balance 666 871 Weight 45 kg 47.7 kg General appearance: PRESENT: no acute distress Head exam: PRESENT: normocephalic Eye exam: PRESENT: EOMI Respiratory exam: PRESENT: unlabored Extremities exam: ABSENT: pedal edema Musculoskeletal exam: PRESENT: ambulatory Neurological exam: PRESENT: alert, awake Psychiatric exam: PRESENT: appropriate affect Skin exam: PRESENT: normal color Results Laboratory Results: 09/10/20 06:50 09/08/20 06:23 09/10/20 06:50 WBC 16.1 H RBC 3.62 L Hgb 10.7 L Hct 32.5 L MCV 90 MCH 29.4 MCHC 32.8 RDW 14.3 H Plt Count 880 H Seg Neutrophils % 89.7 H 09/04/20 21:24 Blood Blood Culture - Final NO GROWTH IN 5 DAYS 09/04/20 19:31 Blood Blood Culture - Final NO GROWTH IN 5 DAYS 09/04/20 09/05/20 15:25 18:08 Troponin I < 0.012 NT-Pro-B Natriuret Pep 88 Impressions: Chest X-Ray 09/04/20 14:55 IMPRESSION: Diffuse bilateral airspace disease. Chest/Abdomen CTA 09/04/20 18:35 IMPRESSION: No acute pulmonary embolism. Extensive bilateral diffuse pneumonia, suspicious for Covid etiology, correlate clinically. Mild right pleural effusion. Assessment & Plan - Diagnosis (1) Acute hypoxemic respiratory failure Is this a current diagnosis for this admission?: Yes (2) Interstitial pneumonia Is this a current diagnosis for this admission?: Yes (3) Thrombocytosis Is this a current diagnosis for this admission?: Yes Plan: Much improved today. Again, I believe this is all reactive. I will sign off and see her in the office in 1-2 weeks to repeat CBC at that time. Please call me with any questions or concerns. - Time Time Spent with patient: Less than 15 minutes
[2020-09-10] MEDS: TEMAZEPAM 15 MG CAPSULE PO PRN (21:10)
[2020-09-11] MEDS: IPRATROPIUM BROMIDE 0.02% NEB 0.5 MG/2.5 ML AMPUL NEB SCH ×3 (00:11→15:40)
[2020-09-11] MEDS: MORPHINE SULFATE 10 MG/ML INJ IV PRN ×3 (04:49→18:56)
[2020-09-11] MEDS: ACETAMINOPHEN 325 MG TABLET PO PRN ×3 (05:03→14:56)
[2020-09-11 07:10] LABS: HEMATOCRIT 31.7 % (36.0-47.0); HEMOGLOBIN 10.5 g/dL (12.0-15.5); MEAN CORPUSCULAR HEMOGLOBIN 29.6 pg (27.0-33.4); MEAN CORPUSCULAR HGB CONC 33.2 g/dL (32.0-36.0); MEAN CORPUSCULAR VOLUME 89 fl (80-97); PLATELET COUNT 826 10^3/uL (150-450); RED BLOOD COUNT 3.56 10^6/uL (3.72-5.28); RED CELL DISTRIBUTION WIDTH 14.5 % (11.5-14.0); WHITE BLOOD COUNT 18.4 10^3/uL (4.0-10.5)
[2020-09-11] MEDS: CEFEPIME 1 GM/D5W RTU 1 GM/50 ML RTUPB IV SCH ×2 (10:04→23:47)
[2020-09-11] MEDS: GUAIFENESIN/CODEINE PHOS 100-10 MG/ 5 ML UDC PO SCH ×4 (10:05→23:47)
[2020-09-11] MEDS: ONDANSETRON HCL INJ/PF 4 MG/2 ML SDV IV PRN (10:05)
[2020-09-11] MEDS: ENOXAPARIN SODIUM INJ 40 MG/0.4 ML DISP.SYRIN SUBCUT SCH (10:07)
[2020-09-11] MEDS: FAMOTIDINE 20 MG TABLET PO SCH ×2 (10:07→23:47)
[2020-09-11] MEDS: LIDOCAINE 5% (700 MG) TRANSDERMAL ADH..PATCH TP SCH (10:11)
[2020-09-11 11:50] LABS: PATH REVIEW PATHOLOGIST REVIEWED
--- NOTE | 2020-09-11 11:54 | PDOC PROGRESS REPORT ---
Subjective Date:: 09/11/20 Subjective:: BRITTANY STEELE is a 35 year old female with no significant chronic medical issues, who presents to the hospital for evaluation of progressively worsening shortness of breath and cough. Patient was recently seen at [facility] where she was treated for pyelonephritis at the beginning of the month. She subsequently was hospitalized from Friday to Friday last week for treatment of pneumonia and C. difficile infection. She was discharged on vancomycin and azithromycin. She also was discharged on Tamiflu. She states she completed the Tamiflu and azithromycin but stopped taking the vancomycin because it made her feel sicker. She continues to have progressive worsening shortness of breath and dry hacking cough. She states she was tested for COVID-19 during her last hospitalization which was negative. She was also tested at the beginning of the month for COVID-19 which was also negative. She is not certain that her flu test was positive though she was sent home on Tamiflu. She denies any sick contacts. Denies any rashes. She states her diarrhea has resolved as well. Seen in the ER today and noted to be hypoxic and was placed on 2 L nasal cannula. Initial documentation shows she was 90% on room air. 09/05/2020. No acute events overnight. Shortness of breath improving, denies any fever, chills, nausea, vomiting. Denies any chest pain. SPO2 WNL on 2 L nasal cannula. 09/06/2020. No acute events overnight. Patient still complaining of pleuritic chest pain and cough, shortness of breath improving, denies any fever, chills, nausea, vomiting, diarrhea, constipation or any urinary symptoms. P.o. tolerant. Having normal bowel and bladder movements. Patient has tested negative for COVID-19. Will be transferred to regular floor. 09/07/2020. No acute events overnight. Still complaining of persistent cough which has improved since yesterday, pleuritic chest pain is also improving, denies any fever, chills, nausea, vomiting, diarrhea, constipation or any urinary symptoms. 09/08/2020. Patient reporting significant improvement of her cough, pleuritic chest pain and shortness of breath however patient is having worsening leukocytosis, denies any fever, chills, nausea, vomiting. P.o. tolerant. Having normal bowel bladder movement. Ambulatory. SPO2 WNL on 2 L. 09/09/2020. No acute events overnight. Reporting improvement of her symptoms, p.o. tolerant, ambulatory, having normal bowel and bladder movement, [employer] O2 dependent, could be potentially discharge but unfortunately patient is having significant leukocytosis and worsening thrombocytosis. 09/10/2020. No acute events overnight. Shortness of breath improving, patient still having significant leukocytosis and thrombocytosis however improving compared to yesterday, denies any fever, chills, nausea, vomiting, diarrhea, constipation or any urinary symptoms. Possible discharge home tomorrow. 09/11/2020. No acute events overnight. Complaining of exertional shortness of breath otherwise denies any fever, chills, nausea, vomiting. Unfortunately patient is still having significant leukocytosis and thrombocytosis. Will hold IV steroids and consult pulmonology for any further input. Reason For Visit: PNEUOMONIA V. PNEUMONITIS Physical Exam Vital Signs: Temp Pulse Resp BP Pulse Ox 98.1 F 88 15 128/79 H 98 09/11/20 08:00 09/11/20 08:55 09/11/20 08:55 09/11/20 08:00 09/11/20 08:55 Pulse Oximeter Continuous Start: 09/04/20 22:34 Freq: RTQ4 Status: Complete Protocol: Document 09/05/20 11:31 HIRAL (Rec: 09/05/20 11:31 HIRAL [id number]) Pulse Oximetry Assessment Equipment Usage Equipment Standby Continuous SpO2 Machine # 0 Additional RT Notes Other on nurse monitor Intake & Output 09/10/20 09/11/20 09/12/20 06:59 06:59 06:59 Intake Total 871 100 Balance 871 100 Weight 47.7 kg 47.7 kg General appearance: PRESENT: no acute distress, well-developed, well-nourished Head exam: PRESENT: atraumatic, normocephalic Respiratory exam: PRESENT: clear to auscultation alcides. ABSENT: rales, rhonchi, wheezes Cardiovascular exam: PRESENT: RRR. ABSENT: diastolic murmur, rubs, systolic murmur GI/Abdominal exam: PRESENT: normal bowel sounds, soft. ABSENT: distended, guarding, mass, organolmegaly, rebound, tenderness Neurological exam: PRESENT: alert, awake, oriented to person, oriented to place, oriented to time, oriented to situation, CN II-XII grossly intact. ABSENT: motor sensory deficit Psychiatric exam: PRESENT: anxious Results Laboratory Results: 09/11/20 06:47 09/08/20 06:23 09/11/20 06:47 WBC 18.4 H RBC 3.56 L Hgb 10.5 L Hct 31.7 L MCV 89 MCH 29.6 MCHC 33.2 RDW 14.5 H Plt Count 826 H 09/04/20 09/05/20 15:25 18:08 Troponin I < 0.012 NT-Pro-B Natriuret Pep 88 Impressions: Chest X-Ray 09/04/20 14:55 IMPRESSION: Diffuse bilateral airspace disease. Chest/Abdomen CTA 09/04/20 18:35 IMPRESSION: No acute pulmonary embolism. Extensive bilateral diffuse pneumonia, suspicious for Covid etiology, correlate clinically. Mild right pleural effusion. Assessment and Plan - Diagnosis (1) Acute hypoxemic respiratory failure Is this a current diagnosis for this admission?: Yes Plan: Improving. SPO2 WNL on 1 L nasal cannula. Afebrile, still having significant leukocytosis. Thrombocytosis improving. Secondary to interstitial pneumonia/pneumonitis Presented with PO2 59 on 2 L nasal cannula. CTA chest on admission negative for PE. Extensive bilateral diffuse pneumonia right pleural effusion. Continue broad-spectrum empiric IV antibiotics IV steroids to see if leukocytosis improves. Continue LAMA, LABA, ICS, flutter valve, incentive spirometry, duo nebs, pulmonary toileting. Pulmonology has been consulted. 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 CTA appearance also fits this etiology. It is possible that this is the culprit here especially she has not responded to antibiotics, Tamiflu Advised on abstaining from vaping. We will do steroids to see if leukocytosis improved. Pulmonology has been consulted. (3) History of Clostridioides difficile infection Is this a current diagnosis for this admission?: Yes Plan: C. difficile toxin negative. No diarrhea. DC vancomycin. (4) Interstitial pneumonia Is this a current diagnosis for this admission?: Yes Plan: CTA chest shows no PE but does show extensive bilateral interstitial infiltrates. Leukocytosis over 20,000, SIRS and inflammatory markers are quite high. Not septic. Patient reports having 2 negative Covid tests this month. Flu test is also negative. Suspicion is for interstitial pneumonia or pneumonitis. Completed course of azithromycin which should help with atypical infections such as Legionella. Denies any rheumatologic diseases or symptoms. Plan as per #1. (5) Suspected COVID-19 virus infection Is this a current diagnosis for this admission?: Yes Plan: Denies any exposure to anybody with COVID-19 infection. COVID-19 test came back negative. (6) Thrombocytosis Is this a current diagnosis for this admission?: Yes Plan: Improving. Iron panel WNL. TSH WNL. Could be secondary to acute infection. Continue DVT prophylaxis. Hematology consulted. Recommendations noted. - Time Time Spent with patient: 25-34 minutes Anticipated Discharge Disposition: Home, Self Care Anticipated Discharge Timeframe: within 24 hours
[2020-09-11] MEDS: ALBUTEROL SULFATE HFA (90 MCG/PUFF) 8 GM MDI IH SCH ×3 (14:50→23:49)
[2020-09-11] MEDS ORDERED: PHARMACY COMMUNICATION ORDER MC SCH (22:00)
[2020-09-11] MEDS: TEMAZEPAM 15 MG CAPSULE PO PRN (23:47)
[2020-09-12] MEDS: IPRATROPIUM BROMIDE 0.02% NEB 0.5 MG/2.5 ML AMPUL NEB SCH ×2 (00:07→08:53)
[2020-09-12] MEDS: MORPHINE SULFATE 10 MG/ML INJ IV PRN (00:17)
[2020-09-12] MEDS: ALBUTEROL SULFATE HFA (90 MCG/PUFF) 8 GM MDI IH SCH (06:31)
[2020-09-12] MEDS: ACETAMINOPHEN 325 MG TABLET PO PRN (06:36)
[2020-09-12 07:45] LABS: HEMATOCRIT 36.8 % (36.0-47.0); HEMOGLOBIN 11.8 g/dL (12.0-15.5); MEAN CORPUSCULAR HEMOGLOBIN 28.9 pg (27.0-33.4); MEAN CORPUSCULAR HGB CONC 32.1 g/dL (32.0-36.0); MEAN CORPUSCULAR VOLUME 90 fl (80-97); PLATELET COUNT 808 10^3/uL (150-450); RED BLOOD COUNT 4.08 10^6/uL (3.72-5.28); WHITE BLOOD COUNT 12.3 10^3/uL (4.0-10.5)
[2020-09-12 08:12] LABS: ABSOLUTE LYMPHOCYTES# (MANUAL) 2.8 10^3/uL (0.5-4.7); ABSOLUTE MONOCYTES # (MANUAL) 0.6 10^3/uL (0.1-1.4); BAND NEUTROPHILS % (MANUAL) 2 % (3-5); BASOPHILS % (MANUAL) 0 % (0-2); EOSINOPHILS % (MANUAL) 7 % (0-6); LYMPHOCYTES % (MANUAL) 21 % (13-45); MONOCYTES % (MANUAL) 5 % (3-13); SEGMENTED NEUTROPHILS % (MAN) 63 % (42-78); TOTAL CELLS COUNTED 100
[2020-09-12 08:13] LABS: PLATELET COMMENT INCREASED
[2020-09-12 08:14] LABS: RBC MORPHOLOGY COMMENT NORMO-CYTIC/CHROMIC
[2020-09-12] MEDS: GUAIFENESIN/CODEINE PHOS 100-10 MG/ 5 ML UDC PO SCH (10:42)
[2020-09-12] MEDS: CEFEPIME 1 GM/D5W RTU 1 GM/50 ML RTUPB IV SCH (10:42)
[2020-09-12] MEDS: LIDOCAINE 5% (700 MG) TRANSDERMAL ADH..PATCH TP SCH (10:42)
[2020-09-12] MEDS: ENOXAPARIN SODIUM INJ 40 MG/0.4 ML DISP.SYRIN SUBCUT SCH (10:43)
[2020-09-12] MEDS: FAMOTIDINE 20 MG TABLET PO SCH (10:44)
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
[2020-09-12 14:28] VITALS: BP 124/80
--- NOTE | 2020-09-12 15:30 | PDOC DISCHARGE SUMMARY ---
Impression - Admit/DC Date/PCP Admission Date/Primary Care Provider: 09/04/20 22:34 GUSTAVO ATWOOD DO Discharge Date: 09/12/20 - Discharge Diagnosis (1) Acute hypoxemic respiratory failure Is this a current diagnosis for this admission?: Yes (2) Bilateral pneumonia Is this a current diagnosis for this admission?: Yes (3) History of Clostridioides difficile infection Is this a current diagnosis for this admission?: Yes (4) Thrombocytosis Is this a current diagnosis for this admission?: Yes - Assessment Summary: BRITTANY STEELE is a 35 year old female previously healthy woman who states that she has been ill for the last month. She initially presented to the [facility] for UTI and was treated with antibiotics but did not feel any better and subsequently returned to [facility] where she was admitted again, and underwent treatment of pneumonia and C. difficile infection. She was discharged on oral vancomycin and azithromycin, as well as Tamiflu. She states she completed the Tamiflu and azithromycin but stopped taking vancomycin because it made her feel sicker. She continued to have progressively worsening shortness of breath and dry hacking cough, so she presented to [facility] on 09/04/2020. She was found to have acute hypoxemic respiratory failure. CTA was negative for PE but did show diffuse, bilateral infiltrates consistent with pneumonia. Covid- 19 testing was negative. BCx were negative. She was started on broad spectrum IV antibiotics and completed a 5 day course of IV antibiotic therapy while inpatient. She was successfully weaned off supplemental O2 and was saturating 100% on room air with ambulation on the day of discharge. Hospital course was complicated by thrombocytosis, for which hematology was consulted. They felt her high platelet count to be reactive, due to her infection. Her platelet count was decreasing by the time of discharge. She will follow up with hematology as outpatient for repeat CBC in 1-2 weeks. - Additional Information Resuscitation Status: Full Code Discharge Diet: Regular Discharge Activity: Activity As Tolerated, Balance Activity w/Rest, Slowly Increase Activity Referrals: DORIS BIRD MD [ACTIVE STAFF] - (in 2-3 weeks) GUSTAVO ATWOOD DO [Primary Care Provider] - Follow up as needed Prescriptions: Lidocaine [Lidoderm 5% (700 mg) Transdermal Patch] 2 patch TP DAILY #60 adh..patch Home Medications: Lidocaine [Lidoderm 5% (700 mg) Transdermal Patch] 2 patch TP DAILY #60 adh..p atch 09/12/20 History of Present Illiness History of Present Illness: BRITTANY STEELE is a 35 year old female Physical Exam Vital Signs: Temp Pulse Resp BP Pulse Ox 98.1 F 82 16 124/80 100 09/12/20 14:26 09/12/20 14:26 09/12/20 14:26 09/12/20 14:26 09/12/20 14:26 Pulse Oximeter Continuous Start: 09/04/20 22:34 Freq: RTQ4 Status: Complete Protocol: Document 09/05/20 11:31 JDR (Rec: 09/05/20 11:31 JDR [id number]) Pulse Oximetry Assessment Equipment Usage Equipment Standby Continuous SpO2 Machine # 0 Additional RT Notes Other on nurse monitor Intake & Output 09/11/20 09/12/20 09/13/20 06:59 06:59 06:59 Intake Total 100 1380 500 Balance 100 1380 500 Weight 47.7 kg 49.1 kg Results Laboratory Results: WBC 12.3 10^3/uL (4.0-10.5) H 09/12/20 06:54 RBC 4.08 10^6/uL (3.72-5.28) 09/12/20 06:54 Hgb 11.8 g/dL (12.0-15.5) L 09/12/20 06:54 Hct 36.8 % (36.0-47.0) 09/12/20 06:54 MCV 90 fl (80-97) 09/12/20 06:54 MCH 28.9 pg (27.0-33.4) 09/12/20 06:54 MCHC 32.1 g/dL (32.0-36.0) 09/12/20 06:54 RDW 15.0 % (11.5-14.0) H 09/12/20 06:54 Plt Count 808 10^3/uL (150-450) H 09/12/20 06:54 Lymph % (Auto) Not Reportable 09/12/20 06:54 [place] % (Auto) Not Reportable 09/12/20 06:54 Eos % (Auto) Not Reportable 09/12/20 06:54 Baso % (Auto) Not Reportable 09/12/20 06:54 Reticulocyte # 0.066 10^6/uL (0.028-0.122) 09/08/20 06:23 Absolute Neuts (auto) Not Reportable 09/12/20 06:54 Absolute Lymphs (auto) Not Reportable 09/12/20 06:54 Absolute Monos (auto) Not Reportable 09/12/20 06:54 Absolute Eos (auto) Not Reportable 09/12/20 06:54 Absolute Basos (auto) Not Reportable 09/12/20 06:54 Total Counted 100 09/12/20 06:54 Seg Neutrophils % Not Reportable 09/12/20 06:54 Seg Neuts % (Manual) 63 % (42-78) 09/12/20 06:54 Band Neutrophils % 2 % (3-5) L 09/12/20 06:54 Lymphocytes % (Manual) 21 % (13-45) 09/12/20 06:54 Atypical Lymphs % 2 % (0) 09/12/20 06:54 Monocytes % (Manual) 5 % (3-13) 09/12/20 06:54 Eosinophils % (Manual) 7 % (0-6) H 09/12/20 06:54 Basophils % (Manual) 0 % (0-2) 09/12/20 06:54 Abs Neuts (Manual) 8.0 10^3/uL (1.7-8.2) 09/12/20 06:54 Abs Lymphs (Manual) 2.8 10^3/uL (0.5-4.7) 09/12/20 06:54 Abs Monocytes (Manual) 0.6 10^3/uL (0.1-1.4) 09/12/20 06:54 Absolute Eos (Manual) 0.9 10^3/uL (0.0-0.6) H 09/12/20 06:54 Abs Basophils (Manual) 0.0 10^3/uL (0.0-0.2) 09/12/20 06:54 Toxic Granulation SLIGHT 09/09/20 05:38 Toxic Vacuolation PRESENT 09/09/20 05:38 Platelet Comment INCREASED 09/12/20 06:54 Polychromasia SLIGHT 09/04/20 15:25 Hypochromasia 1+ 09/06/20 04:52 Poikilocytosis SLIGHT 09/09/20 05:38 Anisocytosis SLIGHT 09/09/20 05:38 Tear Drop Cells SLIGHT 09/09/20 05:38 Ovalocytes SLIGHT 09/09/20 05:38 RBC Morph Comment NORMO-CYTIC/CHROMIC 09/12/20 06:54 Retic Count (auto) 1.73 % (0.66-2.85) 09/08/20 06:23 PT 15.7 SEC (11.4-15.4) H 09/06/20 04:52 INR 1.23 09/06/20 04:52 D-Dimer 3.30 ug/mL (0.00-0.50) H 09/06/20 04:52 Carbonic Acid 1.07 mmol/L (1.05-1.35) 09/04/20 19:05 HCO3/H2CO3 Ratio 22:1 09/04/20 19:05 ABG pH 7.45 (7.35-7.45) 09/04/20 19:05 ABG pCO2 35.5 mmHg (35-45) 09/04/20 19:05 ABG pO2 59.7 mmHg (80-100) L 09/04/20 19:05 ABG HCO3 23.8 mmol/L (20-24) 09/04/20 19:05 ABG Total CO2 24.9 mmol/L (21-25) 09/04/20 19:05 ABG O2 Saturation 92.1 % (94-98) L 09/04/20 19:05 ABG Base Excess 0.1 mmol/L 09/04/20 19:05 FiO2 28% 09/04/20 19:05 Sodium 135.1 mmol/L (137-145) L 09/08/20 06:23 Potassium 4.7 mmol/L (3.6-5.0) 09/08/20 06:23 Chloride 99 mmol/L (98-107) 09/08/20 06:23 Carbon Dioxide 26 mmol/L (22-30) 09/08/20 06:23 Anion Gap 10 (5-19) 09/08/20 06:23 BUN 7 mg/dL (7-20) 09/08/20 06:23 Creatinine 0.43 mg/dL (0.52-1.25) L 09/08/20 06:23 Est GFR ( Amer) > 60 (>60) 09/08/20 06:23 Est GFR (MDRD) Non-Af > 60 (>60) 09/08/20 06:23 Glucose 164 mg/dL (75-110) H 09/08/20 06:23 POC Glucose 119 mg/dL (70-110) H 09/10/20 10:42 Calcium 9.0 mg/dL (8.4-10.2) 09/08/20 06:23 Magnesium 1.9 mg/dL (1.6-2.3) 09/06/20 04:52 Iron 57.6 ug/dL (37-170) 09/08/20 06:23 TIBC 289 ug/dL (250-450) 09/08/20 06:23 % Saturation 20 % 09/08/20 06:23 Ferritin 124.00 ng/mL (6.2-137.0) 09/08/20 06:23 Total Bilirubin 0.4 mg/dL (0.2-1.3) 09/08/20 06:23 Direct Bilirubin 0.2 mg/dL (0.0-0.4) 09/08/20 06:23 Neonat Total Bilirubin Not Reportable 09/08/20 06:23 Neonat Direct Bilirubin Not Reportable 09/08/20 06:23 Neonat Indirect Bili Not Reportable 09/08/20 06:23 AST 24 U/L (14-36) 09/08/20 06:23 ALT 28 U/L (<35) 09/08/20 06:23 Alkaline Phosphatase 78 U/L (38-126) 09/08/20 06:23 Lactate Dehydrogenase 377 U/L (120-246) H 09/09/20 11:25 Troponin I < 0.012 ng/mL 09/05/20 18:08 C-Reactive Protein 54.0 mg/L (<10.0) H 09/04/20 15:25 NT-Pro-B Natriuret Pep 88 pg/mL (<125) 09/04/20 15:25 Total Protein 6.2 g/dL (6.3-8.2) L 09/08/20 06:23 Albumin 3.4 g/dL (3.5-5.0) L 09/08/20 06:23 Vitamin B12 506.0 pg/mL (239-931) 09/08/20 06:23 Folate 5.69 ng/mL (>2.76) 09/08/20 06:23 TSH 0.85 uIU/mL (0.47-4.68) 09/09/20 11:25 Urine Color STRAW 09/04/20 15:25 Urine Appearance CLEAR 09/04/20 15:25 Urine pH 8.0 (5.0-9.0) 09/04/20 15:25 Ur Specific [place] 1.006 09/04/20 15:25 Urine Protein NEGATIVE mg/dL (NEGATIVE) 09/04/20 15:25 Urine Glucose (UA) NEGATIVE mg/dL (NEGATIVE) 09/04/20 15:25 Urine Ketones NEGATIVE mg/dL (NEGATIVE) 09/04/20 15:25 Urine Blood NEGATIVE (NEGATIVE) 09/04/20 15:25 Urine Nitrite NEGATIVE (NEGATIVE) 09/04/20 15:25 Urine Bilirubin NEGATIVE (NEGATIVE) 09/04/20 15:25 Urine Urobilinogen NEGATIVE mg/dL (<2.0) 09/04/20 15:25 Ur Leukocyte Esterase NEGATIVE (NEGATIVE) 09/04/20 15:25 Urine WBC (Auto) 0 /HPF 09/04/20 15:25 Urine RBC (Auto) 0 /HPF 09/04/20 15:25 Squamous Epi Cells Auto 2 /HPF 09/04/20 15:25 Urine Mucus (Auto) RARE /LPF 09/04/20 15:25 Urine Ascorbic Acid NEGATIVE (NEGATIVE) 09/04/20 15:25 Urine HCG, Qual NEGATIVE (NEGATIVE) 09/04/20 15:25 Stl C. Difficile GDH Ag NEGATIVE (NEGATIVE) 09/05/20 14:40 Stl C.difficile Tox A&B NEGATIVE (NEGATIVE) 09/05/20 14:40 COVID-19 Source See comment 09/04/20 17:15 COVID-19 (JENNIFER) Not Detected (Not Detect) 09/04/20 17:15 Influenza A (Rapid) NEGATIVE (NEGATIVE) 09/04/20 15:25 Influenza B (Rapid) NEGATIVE (NEGATIVE) 09/04/20 15:25 Slides for Path Review PATHOLOGIST REVIEWED 09/09/20 05:38 09/04/20 09/05/20 15:25 18:08 Troponin I < 0.012 NT-Pro-B Natriuret Pep 88 Impressions: Chest X-Ray 09/04/20 14:55 IMPRESSION: Diffuse bilateral airspace disease. Chest/Abdomen CTA 09/04/20 18:35 IMPRESSION: No acute pulmonary embolism. Extensive bilateral diffuse pneumonia, suspicious for Covid etiology, correlate clinically. Mild right pleural effusion. Stroke Is this a Stroke Patient?: No Acute Heart Failure Is this a Heart Failure Patient?: No
== END 2020-09-12 15:00 | disposition home or self-care (01) | DRG 196 ==
LOC: ER 13:33 → EH 22:15 → OBSVTOIN 22:34 → 3W 09-05 09:46 → 4S 09-07 06:32 → 2N 09-08 22:25
PROVIDERS: ADMIT Internal Medicine; ATTEND Hospitalist
DX: J84.9 Interstitial pulmonary disease, unspecified (principal); J96.01 Acute respiratory failure with hypoxia; U07.0 Vaping-related disorder; F41.1 Generalized anxiety disorder; F17.210 Nicotine dependence, cigarettes, uncomplicated; D47.3 Essential (hemorrhagic) thrombocythemia; Z20.828 Contact with and (suspected) exposure to other viral communicable diseases; Z82.5 Family history of asthma and other chronic lower respiratory diseases; Z87.11 Personal history of peptic ulcer disease; Z86.19 Personal history of other infectious and parasitic diseases; Z87.820 Personal history of traumatic brain injury
CPT/HCPCS: 36415; 36600; 71045; 71275; 80048; 80053; 81001; 81025; 82607; 82728; 82746; 82803; 82962; 83540; 83550; 83615; 83735; 83880; 84443; 84484; 85025; 85027; 85045; 85379; 85610; 86140; 87040; 87070; 87205; 87324; 87449; 87635; 87804; 93005; 93010; 94640; 94667; 94668; 94799; 96365; 96375; 99285; C9803; J0692; J1100; J1650; J1956; J2270; J2405; J2920; J3370; J3490; J7030; J7120; J7644; J8540